=== PATIENT | female | born 1940 | race Caucasian/White ===

== ENCOUNTER 2017-09-07 09:38 | Inpatient (IN) | payer MEDICARE, OTHER ==
[~2017-09-07] VITALS: Ht 157.5 cm; Wt 86.2 kg
[~2017-09-07 09:38] MED LIST: ASPI-1169 PO; CELE-85 PO; DEXL60CA3 PO; ERGO500014 PO; GLIM4TAB2 PO; INSU100I19 SQ; LORA10TA68 PO; NEBI10TA2 PO; OLME1TAB22 PO; ROSU40TA PO
--- NOTE | 2017-09-07 09:45 | NUR ---
PRESENTS TO ER C/O SOB, PALPITATIONS, PNA. WAS IN HOSPITAL x 6 DAYS. PATIENT IS A/OX 4, BREATHING EVEN AND UNLABORED. NO DISTRESS NOTED. VITALS STABLE. SAFETY AND COMFORT MEASURES IN PLACE. AWAITING MD ORDERS.
--- NOTE | 2017-09-07 10:20 | NUR ---
NEW IV STARTED ON LAC, 20G. BLOOD DRAWN AND SENT TO LAB.
[2017-09-07] MEDS ORDERED: CEFTRIAXONE 1GM BAG (ER ONLY) 50 ML IV ONE ×2 (10:30→10:31)
[2017-09-07] MEDS ORDERED: LEVOFLOXACIN 750 MG /D5W 150ML 150 ML IV ONE ×2 (10:30→10:31)
[2017-09-07 10:33] LABS: BASOPHILS % (AUTO) 0.4 % (0.0-2.0); EOSINOPHILS % (AUTO) 3.3 % (0.0-6.0); HEMATOCRIT 32 % (33-45); HEMOGLOBIN 10.6 g/dL (11.5-14.8); LYMPHOCYTES # (AUTO) 1.9 /CMM (0.8-4.8); LYMPHOCYTES % (AUTO) 22.9 % (20.0-44.0); MEAN CORPUSCULAR HEMOGLOBIN 28 PG (26.0-33.0); MEAN CORPUSCULAR HGB CONC 33 g/dl (31.0-36.0); MEAN CORPUSCULAR VOLUME 86 fL (82-100); MONOCYTES # (AUTO) 0.5 /CMM (0.1-1.30); MONOCYTES % (AUTO) 6.3 % (2.0-12.0); NEUTROPHILS # (AUTO) 5.6 /CMM (1.8-8.9); NEUTROPHILS % (AUTO) 67.1 % (43.0-81.0); PLATELET COUNT (AUTO) 370 /CMM (150-450); RDW COEFFICIENT OF VARIATION 16.3 (11.5-15.0); RED BLOOD CELL COUNT(AUTO) 3.76 MIL/uL (4.0-5.2); WHITE BLOOD COUNT (AUTO) 8.3 K/uL (4.3-11.0)
[2017-09-07 10:40] LABS: CALCIUM, SERUM 8.1 mg/dL (8.5-10.1); CARBON DIOXIDE 29 mmol/L (21-32); CHLORIDE 105 mmol/L (98-107); CREATININE 1.2 mg/dL (0.6-1.3); GLUCOSE 205 mg/dL (74-106); POTASSIUM 3.6 mmol/L (3.5-5.1); SODIUM SERUM 139 mmol/L (136-145); UREA NITROGEN, BLOOD 17 mg/dL (7-18)
[2017-09-07 10:47] LABS: TROPONIN I < 0.017 ng/mL (0.00-0.056)
[2017-09-07 10:51] LABS: ALANINE AMINOTRANSFERASE 34 U/L (12-78); ALBUMIN 2.4 g/dL (3.4-5.0); ALKALINE PHOSPHATASE 63 U/L (46-116); ASPARTATE AMINOTRANSFERASE 20 U/L (15-37); B-TYPE NATRIURETIC PEPTIDE 473 PG/ML (0-125); BILIRUBIN,DIRECT 0.1 mg/dL (0.0-0.2); BILIRUBIN,TOTAL 0.1 mg/dL (0.2-1.0); TOTAL PROTEIN, SERUM 6.9 g/dL (6.4-8.2)
[2017-09-07] MEDS ORDERED: CLOP75TA15 PO (10:56)
[2017-09-07] MEDS ORDERED: HYDR-4076 PO (10:56)
[2017-09-07] MEDS ORDERED: AMLO5TAB2 PO (10:56)
[2017-09-07] MEDS ORDERED: ALLO100T PO (10:56)
[2017-09-07] MEDS ORDERED: JENTADUETO PO (10:56)
--- NOTE | 2017-09-07 11:27 | NUR ---
Bed 314-1
--- NOTE | 2017-09-07 11:43 | NUR ---
REPORT GIVEN TO ITALO PINEDO FOR CHRISTY UPON ADMISSION.
[2017-09-07] MEDS ORDERED: MAGNESIUM HYDROXIDE 30 ML UDC PO PRN (12:30)
[2017-09-07] MEDS ORDERED: Z GUARD REMEDY 2 OZ OINT TP PRN (12:30)
[2017-09-07] MEDS ORDERED: LORATADINE 10 MG TABLET PO PRN (12:30)
[2017-09-07] MEDS ORDERED: ONDANSETRON HCL/PF 4 MG/2 ML VIAL IVP PRN (12:30)
[2017-09-07] MEDS ORDERED: ZOLPIDEM TARTRATE 5 MG TABLET PO PRN (12:30)
[2017-09-07] MEDS ORDERED: HYDROCODONE/APAP 5/325MG 1 EACH TABLET PO PRN (12:30)
[2017-09-07] MEDS ORDERED: ACETAMINOPHEN 325 MG TABLET PO PRN (12:30)
[2017-09-07] MEDS ORDERED: MAG HYDROX/AL HYDROX/SIMETH 30 ML UDC PO PRN (12:30)
--- NOTE | 2017-09-07 12:30 | NUR ---
CONTRACTS PARALEGAL ADMITTING NOTE ADMITTING ORDER RECEIVED. PATIENT ARRIVED TO THE UNIT 1230 VIA GURNEY. ALERT ORIENTED X4, WAS ABLE TO AMBULATE TO THE BED FROM [facility] INDEPENDENT[facility]. IN NO APPARENT DISTRESS OR DISCOMFORT AT THIS TIME, RESPIRATIONS EVEN AND UNLABORED. DENIES PAIN AND SOB AT THIS TIME. ON ROOM AIR, TOLERATING WELL. PATIENT ADMITTED TO TELEMETRY UNIT UNDER DR. FREED, AWARE OF PATIENT ADMISSION, ORDERS PLACED IN [facility]. PATIENT ORIENTED TO THE UNIT, STAFF. FAMILY ACCOMPANYING PATIENT, VALUABLE CHECKED, HOME MEDICATIONS SENT TO PHARMACY. SAFETY MEASURES IN PLACE. BED IN LOW LOCKED POSITION, SIDE RAILS UP X2. CALL LIGHT WITHIN EASY REACH, WILL CARRY OUT ADMITTING ORDERS AND CONTINUE TO MONITOR.
--- NOTE | 2017-09-07 12:35 | NUR ---
PATIENT TRANSPORTED TO [facility] VIA ACLS PROTOCOL. RNIATLO TO PROVIDE CHRISTY.
--- NOTE | 2017-09-07 14:41 | NUR ---
patient's home medication Bystolic was not administered as patient stated she took one in the morning already. varified with pharmacy that the medication is once daily and held the dose.
--- NOTE | 2017-09-07 15:10 | NUR ---
RECEIVED REPORT FROM LAB, MIREILLE MARTINEZ, ABOUT PATIENT'S 2ND LACTIC ACID LEVEL BEING INCREASED TO 2.[address] FREED WAS MADE AWARE. NO NEW ORDERS AT THIS TIME. WILL CONTINUE TO MONITOR.
[2017-09-07 16:08] VITALS: BP 155/105
[2017-09-07] MEDS: JENTADUETO PO SCH (17:43)
[2017-09-07] MEDS: IV NS 0.9% 1,000 ML IV PRN (17:43)
[2017-09-07] MEDS: hydrALAZINE HCL 25 MG TABLET PO SCH (17:45)
[2017-09-07] MEDS: GLIMEPIRIDE 4 MG TABLET PO SCH (17:45)
--- NOTE | 2017-09-07 19:46 | NUR ---
WASHER REPAIRMAN CLOSING NOTE PATIENT IN BED, ALERT ORIENTED X4, IN NO APPARENT DISTRESS OR DISCOMFORT AT THIS TIME, RESPIRATIONS EVEN AND UNLABORED. DENIES PAIN AND SOB AT THIS TIME. ON ROOM AIR, TOLERATING WELL. PATIENT WITH TELEMETRY MONITORING, WITH SINUS RHYTHM, HR OF 74. PATIENT WITH LEFT AC IVC 20G, WITH FLUIDS RUNNING AT 75ML/HR, PATENT AND INTACT, NO SIGN OF INFILTRATION. PATIENT IS ABLE TO VERBALIZE NEEDS, SPEAKS BARBADIAN, UNDERSTANDS LITTLE CZECH. ALL NEEDS ATTENDED, KEPT CLEAN AND COMFORTABLE. SAFETY MEASURES IN PLACE. BED IN LOW LOCKED POSITION, SIDE RAILS UP X2. CALL LIGHT WITHIN EASY REACH, WILL ENDORSE TO PM NURSE FOR CHRISTY.
[2017-09-07 20:00] VITALS: BP 154/82
--- NOTE | 2017-09-07 20:00 | NUR ---
TELE/RN RECEIVE PATIENT AWAKE, ALERT, ORIENTED, COMFORTABLE, NO C/O PAIN, NO DISTRESS NOTED, CALL LIGHT IN REACH. WILL MONITOR.
[2017-09-08] VITALS: BP 158/69
[2017-09-08 04:00] VITALS: BP 158/71
[2017-09-08] MEDS: IV NS 0.9% 1,000 ML IV PRN (06:01)
--- NOTE | 2017-09-08 06:19 | NUR ---
TELE/RN PATIENT AWAKE, COMFORTABLE, NO C/O PAIN, NO DISTRESS NOTED,HAD AN ON AND OFF SLEEP THE WHOLE SHIFT. ALL NEEDS ATTENDED AT THIS TIME. WILL CONTINUE TO MONITOR.
[2017-09-08 06:37] LABS: BASOPHILS % (AUTO) 0.4 % (0.0-2.0); EOSINOPHILS % (AUTO) 3.6 % (0.0-6.0); HEMATOCRIT 31 % (33-45); HEMOGLOBIN 10.1 g/dL (11.5-14.8); LYMPHOCYTES % (AUTO) 30.1 % (20.0-44.0); MEAN CORPUSCULAR HEMOGLOBIN 28 PG (26.0-33.0); MEAN CORPUSCULAR HGB CONC 32 g/dl (31.0-36.0); MEAN CORPUSCULAR VOLUME 87 fL (82-100); MONOCYTES # (AUTO) 0.5 /CMM (0.1-1.30); MONOCYTES % (AUTO) 7.4 % (2.0-12.0); NEUTROPHILS # (AUTO) 3.9 /CMM (1.8-8.9); NEUTROPHILS % (AUTO) 58.5 % (43.0-81.0); PLATELET COUNT (AUTO) 335 /CMM (150-450); RDW COEFFICIENT OF VARIATION 15.9 (11.5-15.0); RED BLOOD CELL COUNT(AUTO) 3.59 MIL/uL (4.0-5.2); WHITE BLOOD COUNT (AUTO) 6.7 K/uL (4.3-11.0)
[2017-09-08 06:45] LABS: CALCIUM, SERUM 7.6 mg/dL (8.5-10.1); CARBON DIOXIDE 28 mmol/L (21-32); CHLORIDE 107 mmol/L (98-107); CREATININE 1.1 mg/dL (0.6-1.3); GLUCOSE 109 mg/dL (74-106); MAGNESIUM 1.7 mg/dL (1.8-2.4); PHOSPHORUS 3.4 mg/dL (2.5-4.9); POTASSIUM 3.8 mmol/L (3.5-5.1); SODIUM SERUM 141 mmol/L (136-145); UREA NITROGEN, BLOOD 12 mg/dL (7-18)
[2017-09-08 06:47] LABS: CHOLESTEROL 145 mg/dL (<200); HDL CHOLESTEROL 47 mg/dL (40-60); LDL 72 mg/dL (0-99); TRIGLYCERIDES 182 mg/dL (30-150)
--- NOTE | 2017-09-08 07:20 | NUR ---
RN OPENING NOTES PATIENT RECEIVED SLEEPING COMFORTABLY IN BED, EASILY AROUSABLE DURING CARE.ABLE TO MAKE NEEDS KNOWN RESPIRATIONS EVEN AND UNLABORED, DENIES ANY PAIN OR DISCOMFORT. IV ACCESS PATENT AND INTACT NO REDNESS OR INFILTRATION NOTED. SAFETY MEASURES IN PLACE, KEPT CLEAN DRY AND COMFORTABLE, CALL LIGHT WITHIN EASY REACH, WILL CONTINUE TO MONITOR
[2017-09-08 08:00] VITALS: BP 152/90
[2017-09-08] MEDS: PANTOPRAZOLE 40 MG TABLET.DR PO SCH (08:28)
[2017-09-08] MEDS: ALLOPURINOL 100 MG TABLET PO SCH (08:28)
[2017-09-08] MEDS: GLIMEPIRIDE 4 MG TABLET PO SCH ×2 (08:28→16:49)
[2017-09-08] MEDS: JENTADUETO PO SCH ×2 (08:29→16:49)
[2017-09-08] MEDS: AMLODIPINE BESYLATE 5 MG TABLET PO SCH (08:29)
[2017-09-08] MEDS ORDERED: CLOPIDOGREL BISULFATE 75 MG TABLET PO SCH (09:00)
[2017-09-08] MEDS ORDERED: IV NS 0.9% 1,000 ML BAG IV SCH (09:00)
[2017-09-08] MEDS: hydrALAZINE HCL 25 MG TABLET PO SCH ×2 (10:17→16:50)
[2017-09-08] MEDS: CEFTRIAXONE 2 G in IV NS 0.9% 100 ML IV SCH (12:05)
[2017-09-08] MEDS: Magnesium 1GM/D5W 100ML PREMIX 100 ML IV SCH ×2 (12:55→15:10)
[2017-09-08] MEDS: VALSARTAN 80 MG TABLET PO SCH (12:57)
[2017-09-08] MEDS ORDERED: AZITHROMYCIN 250 MG TABLET PO ONE (13:00)
[2017-09-08 16:00] VITALS: BP 141/89
[2017-09-08] MEDS ORDERED: RIVAROXABAN 10 MG TABLET PO SCH (17:00)
[2017-09-08] MEDS: RIVAROXABAN 15 MG TABLET PO SCH (17:02)
--- NOTE | 2017-09-08 19:36 | NUR ---
RN CLOSING NOTES PATIENT RECEIVED SLEEPING COMFORTABLY IN BED, EASILY AROUSABLE DURING CARE.ABLE TO MAKE NEEDS KNOWN RESPIRATIONS EVEN AND UNLABORED, DENIES ANY PAIN OR DISCOMFORT. IV ACCESS PATENT AND INTACT NO REDNESS OR INFILTRATION NOTED. SAFETY MEASURES IN PLACE, KEPT CLEAN DRY AND COMFORTABLE, CALL LIGHT WITHIN EASY REACH, WILL CONTINUE TO MONITOR Addendum: 09/08/17 at 1938 by YOUSIF WEINBERG RN RN NOTES ENDORSED TO NEXT SHIFT FOR CONTINUITY OF CARE
[2017-09-08 20:00] VITALS: BP 158/80
--- NOTE | 2017-09-08 20:00 | NUR ---
TELE/RN RECEIVE PATIENT AWAKE, ALERT, ORIENTED, COMFORTABLE, NO C/O PAIN, NO SIGNS OF DISTRESS NOTED, CALL LIGHT IN REACH. WILL MONITOR.
[2017-09-09 00:05] VITALS: BP 137/83
[2017-09-09 04:00] VITALS: BP 149/72
--- NOTE | 2017-09-09 06:31 | NUR ---
TELE/RN AWAKE, COMFORTABLE, NO DISTRESS NOTED, SLEPT GOOD THE WHOLE SHIFT, ALL NEEDS ATTENDED AT THIS TIME. WILL CONTINUE TO MONITOR.
[2017-09-09 06:42] LABS: BASOPHILS % (AUTO) 0.4 % (0.0-2.0); EOSINOPHILS % (AUTO) 3.3 % (0.0-6.0); HEMATOCRIT 33 % (33-45); HEMOGLOBIN 10.5 g/dL (11.5-14.8); LYMPHOCYTES # (AUTO) 1.7 /CMM (0.8-4.8); LYMPHOCYTES % (AUTO) 20.9 % (20.0-44.0); MEAN CORPUSCULAR HEMOGLOBIN 28 PG (26.0-33.0); MEAN CORPUSCULAR HGB CONC 32 g/dl (31.0-36.0); MEAN CORPUSCULAR VOLUME 87 fL (82-100); MONOCYTES # (AUTO) 0.5 /CMM (0.1-1.30); MONOCYTES % (AUTO) 6.6 % (2.0-12.0); NEUTROPHILS # (AUTO) 5.6 /CMM (1.8-8.9); NEUTROPHILS % (AUTO) 68.8 % (43.0-81.0); PLATELET COUNT (AUTO) 337 /CMM (150-450); RDW COEFFICIENT OF VARIATION 16.5 (11.5-15.0); RED BLOOD CELL COUNT(AUTO) 3.73 MIL/uL (4.0-5.2); WHITE BLOOD COUNT (AUTO) 8.2 K/uL (4.3-11.0)
[2017-09-09 07:06] LABS: ALANINE AMINOTRANSFERASE 32 U/L (12-78); ALBUMIN 2.5 g/dL (3.4-5.0); ALKALINE PHOSPHATASE 54 U/L (46-116); ASPARTATE AMINOTRANSFERASE 21 U/L (15-37); BILIRUBIN,TOTAL 0.2 mg/dL (0.2-1.0); CALCIUM, SERUM 7.4 mg/dL (8.5-10.1); CARBON DIOXIDE 26 mmol/L (21-32); CHLORIDE 107 mmol/L (98-107); GLUCOSE 90 mg/dL (74-106); PHOSPHORUS 3.6 mg/dL (2.5-4.9); POTASSIUM 3.7 mmol/L (3.5-5.1); SODIUM SERUM 141 mmol/L (136-145); TOTAL PROTEIN, SERUM 6.6 g/dL (6.4-8.2); UREA NITROGEN, BLOOD 9 mg/dL (7-18)
--- NOTE | 2017-09-09 07:33 | NUR ---
LONG HAUL TRUCK DRIVER OPENING NOTES PT RECEIVED AWAKE IN BED IN NO ACUTE SIGNS OF DISTRESS. A/O X 3, SAME ABLE TO MAKE NEEDS KNOWN, NO C/O PAIN OR DISCOMFORTS VOICED AT THIS TIME. ON ROOM AIR, RESPIRATION IS EVEN AND UNLABORED. PT ON TELE-MONITORING WITH CURRENT READING OF SR WITH HR OF 74, NO SIGNS OR C/O CARDIAC DISTRESS VOICED. IV ACCESS ON LAC INTACT AND PATENT, FLUSHES WELL. SAFETY MEASURES IN PLACE. BED IN LOW/LOCKED POSITION WITH SR UP X2. CALL LIGHT WITHIN REACH. WILL CONTINUE TO MONITOR.
[2017-09-09] MEDS: PANTOPRAZOLE 40 MG TABLET.DR PO SCH (07:47)
[2017-09-09 08:00] VITALS: BP 107/82
[2017-09-09] MEDS: JENTADUETO PO SCH ×2 (08:42→16:45)
[2017-09-09] MEDS: ALLOPURINOL 100 MG TABLET PO SCH (08:43)
[2017-09-09] MEDS: VALSARTAN 80 MG TABLET PO SCH (08:43)
[2017-09-09] MEDS: hydrALAZINE HCL 25 MG TABLET PO SCH ×2 (08:43→16:42)
[2017-09-09] MEDS: GLIMEPIRIDE 4 MG TABLET PO SCH ×2 (08:44→16:41)
[2017-09-09] MEDS: AMLODIPINE BESYLATE 5 MG TABLET PO SCH (08:44)
[2017-09-09] MEDS ORDERED: Rivaroxaban PO (09:28)
[2017-09-09] MEDS ORDERED: AZIT250T PO (09:28)
[2017-09-09] MEDS ORDERED: VALS80TA2 PO (09:28)
[2017-09-09] MEDS: CEFTRIAXONE 2 G in IV NS 0.9% 100 ML IV SCH (12:41)
[2017-09-09] MEDS ORDERED: AZITHROMYCIN 250 MG TABLET PO SCH (13:00)
[2017-09-09 16:00] VITALS: BP 154/86
[2017-09-09 16:42] VITALS: BP 154/86
[2017-09-09] MEDS: RIVAROXABAN 15 MG TABLET PO SCH (16:44)
--- NOTE | 2017-09-09 17:53 | NUR ---
RN DISCHARGED NOTES PATIENT DISCHARGED HOME IN STABLE CONDITION. A/O X3, SAME VERBALLY RESPONSIVE WITH NO C/O PAIN OR ACUTE DISTRESS THROUGHOUT THE DAY. ALL NEEDS AND CARE ATTENDED WELL. V/S TAKEN AND RECORDED. SKIN IS INTACT. BELONGINGS CHECKED, COUNTED AND SIGNED FORM. HEALTH TEACHINGS/DISCHARGE INSTRUCTIONS GIVEN TO PT AND VERBALIZED UNDERSTANDING. PRESCRIPTION FOR NEW MEDS GIVEN TO PT. CLINIC APPOINTMENT LETTER FOR MONDAY, SEPTEMBER 11 @ [address] [facility] EXPLAINED AND GIVEN TO PT. PT LEFT UNIT AT 1750 VIA WHEELCHAIR ACCOMPANIED BY ASSIGNED PERSONAL LINES ADVISOR AND [id number] GAYANA. MD AND CHARGE NURSE AWARE OF PT'S DISCHARGE. Addendum: 09/09/17 at 1809 by MARCO A KAY RN ADDENDUM: HOME MEDS FROM PHARMACY GIVEN TO PATIENT WITNESSED BY DAUGHTER IN LAW ZHUGERARDO
== END 2017-09-09 17:58 | disposition home or self-care (01) | DRG 194 ==
LOC: ER 09:40 → TELE 11:30 → MED 09-09 09:58
PROVIDERS: ADMIT Family Medicine; ATTEND Family Medicine
DX: J15.9 Unspecified bacterial pneumonia (principal); E44.0 Moderate protein-calorie malnutrition; E46 Unspecified protein-calorie malnutrition; E87.2 Acidosis; I50.32 Chronic diastolic (congestive) heart failure; D63.8 Anemia in other chronic diseases classified elsewhere; M10.9 Gout, unspecified; I48.91 Unspecified atrial fibrillation; E11.9 Type 2 diabetes mellitus without complications; E83.42 Hypomagnesemia; E88.09 Other disorders of plasma-protein metabolism, not elsewhere classified; E66.9 Obesity, unspecified; Z68.34 Body mass index [BMI] 34.0-34.9, adult; I11.0 Hypertensive heart disease with heart failure; Z79.84 Long term (current) use of oral hypoglycemic drugs; G47.33 Obstructive sleep apnea (adult) (pediatric); Z79.4 Long term (current) use of insulin
CPT/HCPCS: 36415; 70450-TC; 71045-TC; 80048-TC; 80053-TC; 80061-TC; 80076-TC; 83605-TC; 83735-TC; 83880; 84100-TC; 84484-TC; 85025-TC; 87040-TC; 87081-TC; 93307-TC; A4606; J0696; J1956; J3475; J7030; Z7610

== ENCOUNTER 2017-09-11 13:35 | Outpatient (CLI) | payer MEDICARE, OTHER ==
[~2017-09-11 13:35] MED LIST changes: +ALLO100T PO; +AMLO5TAB2 PO; -ASPI-1169 PO; +AZIT250T PO; -CELE-85 PO; -ERGO500014 PO; -INSU100I19 SQ; +JENTADUETO PO; -OLME1TAB22 PO; -ROSU40TA PO; +Rivaroxaban PO; +VALS80TA2 PO
[2017-09-11 13:43] VITALS: BP 130/86
== END 2017-09-11 23:59 | disposition home or self-care (01) ==
LOC: MSC 13:35
PROVIDERS: ATTEND Internal Medicine
DX: Z09 Encounter for follow-up examination after completed treatment for conditions other than malignant neoplasm (principal); Z87.01 Personal history of pneumonia (recurrent); I11.0 Hypertensive heart disease with heart failure; I50.32 Chronic diastolic (congestive) heart failure; E11.9 Type 2 diabetes mellitus without complications; Z79.4 Long term (current) use of insulin; I48.91 Unspecified atrial fibrillation; Z79.02 Long term (current) use of antithrombotics/antiplatelets; Z79.82 Long term (current) use of aspirin; E88.09 Other disorders of plasma-protein metabolism, not elsewhere classified; D64.9 Anemia, unspecified; E66.9 Obesity, unspecified; M10.9 Gout, unspecified

== ENCOUNTER 2019-03-11 08:14 | Emergency (ER) | payer MEDICARE, OTHER ==
[~2019-03-11] VITALS: Ht 160 cm; Wt 87.1 kg
[~2019-03-11 08:14] MED LIST changes: -AMLO5TAB2 PO; +AMLO5TAB9 PO; -GLIM4TAB2 PO; +GLIM4TAB4 PO
--- NOTE | 2019-03-11 08:20 | NUR ---
bib daughter, c/o head, left arm, left knee, bilateral rib pain s/p tripped and fall last night, left eye swelling and hematoma, -ko,7/10 pian scale. alert and oriented x3, breathing even and unlabored with no distress noted. noted with left eye swelling and brusie from fall. waiting to be seen by md.
[2019-03-11 08:50] LABS: BASOPHILS # (AUTO) 0.1 /CMM (0.0-0.2); BASOPHILS % (AUTO) 0.9 % (0.0-2.0); EOSINOPHILS % (AUTO) 1.1 % (0.0-6.0); HEMATOCRIT 39 % (33-45); HEMOGLOBIN 12.4 g/dL (11.5-14.8); LYMPHOCYTES # (AUTO) 2.8 /CMM (0.8-4.8); LYMPHOCYTES % (AUTO) 23.4 % (20.0-44.0); MEAN CORPUSCULAR HGB CONC 32 g/dl (31.0-36.0); MEAN CORPUSCULAR VOLUME 86 fL (82-100); MONOCYTES # (AUTO) 0.8 /CMM (0.1-1.30); MONOCYTES % (AUTO) 6.6 % (2.0-12.0); PLATELET COUNT (AUTO) 204 /CMM (150-450); RED BLOOD CELL COUNT(AUTO) 4.51 MIL/uL (4.0-5.2); WHITE BLOOD COUNT (AUTO) 11.8 K/uL (4.3-11.0)
--- NOTE | 2019-03-11 08:50 | NUR ---
x-ray at bedside to take patient for CT scan
[2019-03-11 09:02] LABS: CALCIUM, SERUM 8.6 mg/dL (8.5-10.1); CARBON DIOXIDE 22 mmol/L (21-32); CHLORIDE 105 mmol/L (98-107); CREATININE 1.5 mg/dL (0.6-1.3); GLUCOSE 98 mg/dL (74-106); POTASSIUM 4.3 mmol/L (3.5-5.1); SODIUM SERUM 140 mmol/L (136-145); UREA NITROGEN, BLOOD 36 mg/dL (7-18)
[2019-03-11 09:12] LABS: ALANINE AMINOTRANSFERASE 43 U/L (12-78); ALKALINE PHOSPHATASE 55 U/L (46-116); ASPARTATE AMINOTRANSFERASE 29 U/L (15-37); BILIRUBIN,DIRECT 0.1 mg/dL (0.0-0.2); BILIRUBIN,TOTAL 0.1 mg/dL (0.2-1.0); TOTAL PROTEIN, SERUM 7.4 g/dL (6.4-8.2)
--- NOTE | 2019-03-11 09:42 | NUR ---
boxer will be placed on patient on her left hand
--- NOTE | 2019-03-11 10:09 | NUR ---
Patient discharged to home in stable condition. Written and verbal after care instructions given. Patient verbalizes understanding of instruction.
[2019-03-11 10:11] VITALS: BP 128/82
== END 2019-03-11 10:12 | disposition home or self-care (01) ==
LOC: ER 08:16
DX: S62.397A Other fracture of fifth metacarpal bone, left hand, initial encounter for closed fracture (principal); S00.83XA Contusion of other part of head, initial encounter; I10 Essential (primary) hypertension; E11.9 Type 2 diabetes mellitus without complications; Z98.890 Other specified postprocedural states; Z79.899 Other long term (current) drug therapy; W01.198A Fall on same level from slipping, tripping and stumbling with subsequent striking against other object, initial encounter; Y93.89 Activity, other specified; Y92.89 Other specified places as the place of occurrence of the external cause; Y99.8 Other external cause status
CPT/HCPCS: 36415; 70450-TC; 71045-TC; 73130-TC; 80048-TC; 80076-TC; 84484-TC; 85025-TC; 85730-TC

== ENCOUNTER 2019-09-16 10:57 | Emergency (ER) | payer MEDICARE, OTHER ==
[~2019-09-16] VITALS: Ht 160 cm; Wt 92.5 kg
[~2019-09-16 10:57] MED LIST changes: +GLIM4TAB37 PO; -GLIM4TAB4 PO
--- NOTE | 2019-09-16 10:58 | NUR ---
BIB RA 39 FROM HOME,BLOOD NOTED IN HER VOMITOUS AND STOOL CHARGE ENTRY SPECIALIST, ALSO C/O R SIDED ABDOMINAL PAIN, TO ER BED 10, HOOKED TO BP CUFF AND POX, CHANGED TO HOSP GOWN, WARM BLANKET PROVIDED, PATIENT AAO x 4, BREATHING EVEN AND UNLABORED, DR HOBSON AT BEDSIDE FOR EVAL.
--- NOTE | 2019-09-16 11:05 | NUR ---
PT IV LINE ESTABLISHED BLOOD DRAWN AND SENT TO LAB.
--- NOTE | 2019-09-16 11:10 | NUR ---
picked up by epic radiant analyst for ct scan
[2019-09-16] MEDS ORDERED: MORPHINE SULFATE INJ 2 MG/ML DISP.SYRIN ONE (11:14)
[2019-09-16 11:15] LABS: BASOPHILS # (AUTO) 0.1 /CMM (0.0-0.2); BASOPHILS % (AUTO) 0.9 % (0.0-2.0); EOSINOPHILS % (AUTO) 1.7 % (0.0-6.0); HEMATOCRIT 40 % (33-45); LYMPHOCYTES # (AUTO) 1.8 /CMM (0.8-4.8); LYMPHOCYTES % (AUTO) 19.3 % (20.0-44.0); MEAN CORPUSCULAR HGB CONC 32 g/dl (31.0-36.0); MEAN CORPUSCULAR VOLUME 88 fL (82-100); MONOCYTES # (AUTO) 0.6 /CMM (0.1-1.30); MONOCYTES % (AUTO) 6.8 % (2.0-12.0); NEUTROPHILS # (AUTO) 6.8 /CMM (1.8-8.9); NEUTROPHILS % (AUTO) 71.3 % (43.0-81.0); PLATELET COUNT (AUTO) 230 /CMM (150-450); RED BLOOD CELL COUNT(AUTO) 4.57 MIL/uL (4.0-5.2); WHITE BLOOD COUNT (AUTO) 9.5 K/uL (4.3-11.0)
[2019-09-16] MEDS ORDERED: MORPHINE SULFATE INJ 2 MG/ML DISP.SYRIN IV ONE (11:30)
[2019-09-16 11:39] LABS: CALCIUM, SERUM 9.1 mg/dL (8.5-10.1); CARBON DIOXIDE 23 mmol/L (21-32); CHLORIDE 102 mmol/L (98-107); CREATININE 1.7 mg/dL (0.6-1.3); GLUCOSE 220 mg/dL (74-106); POTASSIUM 4.1 mmol/L (3.5-5.1); SODIUM SERUM 137 mmol/L (136-145); UREA NITROGEN, BLOOD 28 mg/dL (7-18)
[2019-09-16 11:47] LABS: ALANINE AMINOTRANSFERASE 40 U/L (12-78); ALBUMIN 3.4 g/dL (3.4-5.0); ALKALINE PHOSPHATASE 71 U/L (46-116); ASPARTATE AMINOTRANSFERASE 33 U/L (15-37); BILIRUBIN,DIRECT 0.1 mg/dL (0.0-0.2); BILIRUBIN,TOTAL 0.3 mg/dL (0.2-1.0); LIPASE 136 U/L (73-393)
[2019-09-16] MEDS ORDERED: KETOROLAC TROMETHAMINE INJ 30 MG/ML VIAL ONE (12:26)
[2019-09-16] MEDS ORDERED: KETOROLAC TROMETHAMINE INJ 30 MG/ML VIAL IV ONE (12:30)
--- NOTE | 2019-09-16 12:35 | NUR ---
CALLED ITALO [id number] [phone], NO ANSWER, LEFT VM
--- NOTE | 2019-09-16 12:35 | NUR ---
CALLED AND SPOKE TO GRANDDAUGHTER OBED. WILL COME AND BUSINESS INTELLIGENCE ETL DEVELOPER PT WITHIN AN HOUR.
[2019-09-16 12:40] LABS: APPEARANCE,URINE SL CLOUDY (CLEAR); BILIRUBIN,URINE NEGATIVE (NEGATIVE); BLOOD, URINE LARGE Ery/uL (NEGATIVE); COLOR,URINE YELLOW (YELLOW); KETONES,URINE NEGATIVE (NEGATIVE); LEUKOCYTE ESTERASE ,URINE NEGATIVE (NEGATIVE); NITRITE, URINE NEGATIVE (NEGATIVE); PH,URINE 5.5 (5.0-8.0); PROTEIN,URINE NEGATIVE (NEGATIVE); UGLUCOSE NEGATIVE (NEGATIVE); UROBILINOGEN,URINE 0.2 EU/dL (0.2)
[2019-09-16 12:51] LABS: BACTERIA,URINE Few /HPF (None Seen); RBC,URINE TOO NUMEROUS TO COUN /HPF (0-2); SQUAMOUS EPITHELIAL CELL,UR Few /HPF (None Seen)
[2019-09-16 12:52] LABS: URIC ACID CRYSTALS,URINE Few /HPF (None Seen)
--- NOTE | 2019-09-16 12:56 | NUR ---
IV removed. Catheter intact and site benign. Pressure and 4x4 applied to site. No bleeding noted.
--- NOTE | 2019-09-16 12:58 | NUR ---
Patient discharged to home in stable condition. Picked up by [id number]. Assisted patient via wheelchair to the waiting room. Written and verbal after care instructions given. Patient verbalizes understanding of instruction.
[2019-09-16 12:59] VITALS: BP 151/76
== END 2019-09-16 12:59 | disposition home or self-care (01) ==
LOC: ER 11:04
DX: N20.0 Calculus of kidney (principal); I10 Essential (primary) hypertension; E11.9 Type 2 diabetes mellitus without complications; Z79.899 Other long term (current) drug therapy
CPT/HCPCS: 36415; 71045; 74176; 80048; 80076; 81001; 83690; 84484; 85025; 85730; 86850; 93005; 96374; 96375; 99285; J1885; J2270; 81000-TC

== ENCOUNTER 2020-10-22 17:15 | Emergency (ER) | payer MEDICARE, OTHER ==
[~2020-10-22] VITALS: Ht 152.4 cm; Wt 88.0 kg
[~2020-10-22 17:15] MED LIST changes: +AMLO-212 PO; -AMLO5TAB9 PO
--- NOTE | 2020-10-22 19:07 | NUR ---
CALLED [facility] TO LOOK FOR AN ORTHOPEDIC SURGEON "PARMINDER" REFERRED TO BY PT. NO ORTHO. SRGN FOUND WITH "PARMINDER" BUT SPOKE TO PERSON IN CHARGE OF SURGERY WHO SAID THEY HAVE AN ORTHOPEDIC SURGEON "HEATHER". PT CONFIRMED THAT HEATHER WAS CORRECT. CALLED HEATHER'S OFFICE AT 190; BOILERMAKER SHIP TOLD ME THAT WE SHOULD EXPECT PHONE CALL FROM DR ROMERO WITHIN 15 MINUTES OF 1904, OTHERWISE WE SHOULD CALL THEM BACK AGAIN AT
--- NOTE | 2020-10-22 19:15 | NUR ---
recieved report from SHAHIDA bender
--- NOTE | 2020-10-22 19:52 | NUR ---
CALLED [facility], PAGED DR ROMERO, DR ROMERO SPEAKING WITH DR JULIEN
[2020-10-22] MEDS ORDERED: IBUPROFEN 400 MG TABLET ONE (20:26)
[2020-10-22] MEDS: IBUPROFEN 400 MG TABLET PO ONE (20:30)
--- NOTE | 2020-10-22 20:31 | NUR ---
PER PT, SON ON THE WAY TO PICK HER UP.
[2020-10-22] MEDS ORDERED: NAPR-1009 PO (20:57)
--- NOTE | 2020-10-22 21:11 | NUR ---
Patient discharged to home in stable condition. Written and verbal after care instructions given. Patient verbalizes understanding of instruction.RX given
[2020-10-22 21:12] VITALS: BP 177/80
== END 2020-10-22 21:12 | disposition home or self-care (01) ==
LOC: ER 17:20
DX: M25.461 Effusion, right knee (principal); M25.561 Pain in right knee; I10 Essential (primary) hypertension; E11.9 Type 2 diabetes mellitus without complications; Z98.890 Other specified postprocedural states; Z79.899 Other long term (current) drug therapy
CPT/HCPCS: 73564-TC

== ENCOUNTER 2020-11-22 15:21 | Inpatient (IN) | payer MEDICARE, OTHER ==
[~2020-11-22] VITALS: Ht 157.5 cm; Wt 133.5 kg
[~2020-11-22 15:21] MED LIST changes: +NAPR-1009 PO
--- NOTE | 2020-11-22 15:23 | NUR ---
RUPERTO EDWARDS AT BEDSIDE FOR EVAL.
[2020-11-22] MEDS ORDERED: MORPHINE SULFATE INJ 2 MG/ML DISP.SYRIN IV ONE (15:30)
[2020-11-22] MEDS ORDERED: IV NS 0.9% 1,000 ML BAG IV ONE ×3 (15:30→20:00)
[2020-11-22] MEDS ORDERED: ONDANSETRON HCL/PF 4 MG/2 ML VIAL IVP ONE (15:30)
--- NOTE | 2020-11-22 15:30 | NUR ---
BLOOD DRAWN AND SENT TO LAB.
[2020-11-22] MEDS ORDERED: ONDANSETRON HCL/PF 4 MG/2 ML VIAL ONE (15:32)
[2020-11-22] MEDS ORDERED: MORPHINE SULFATE INJ 2 MG/ML DISP.SYRIN ONE (15:32)
[2020-11-22 15:43] LABS: BASOPHILS % (AUTO) 0.4 % (0.0-2.0); EOSINOPHILS % (AUTO) 1.1 % (0.0-6.0); HEMATOCRIT 33 % (33-45); HEMOGLOBIN 10.6 g/dL (11.5-14.8); LYMPHOCYTES # (AUTO) 0.3 K/uL (0.8-4.8); LYMPHOCYTES % (AUTO) 11.1 % (20.0-44.0); MEAN CORPUSCULAR HGB CONC 32 g/dl (31.0-36.0); MEAN CORPUSCULAR VOLUME 85 fL (82-100); MONOCYTES % (AUTO) 0.7 % (2.0-12.0); NEUTROPHILS # (AUTO) 2.4 K/uL (1.8-8.9); NEUTROPHILS % (AUTO) 86.7 % (43.0-81.0); PLATELET COUNT (AUTO) 198 K/uL (150-450); RED BLOOD CELL COUNT(AUTO) 3.93 MIL/uL (4.0-5.2); WHITE BLOOD COUNT (AUTO) 2.8 K/uL (4.3-11.0)
[2020-11-22 15:56] LABS: ALANINE AMINOTRANSFERASE 27 U/L (12-78); ALBUMIN 2.7 g/dL (3.4-5.0); ALKALINE PHOSPHATASE 90 U/L (46-116); ASPARTATE AMINOTRANSFERASE 29 U/L (15-37); BILIRUBIN,DIRECT 0.2 mg/dL (0.0-0.2); BILIRUBIN,TOTAL 0.4 mg/dL (0.2-1.0); CALCIUM, SERUM 8.4 mg/dL (8.5-10.1); CARBON DIOXIDE 22 mmol/L (21-32); CHLORIDE 102 mmol/L (98-107); CREATININE 1.8 mg/dL (0.6-1.3); GLUCOSE 208 mg/dL (74-106); LIPASE 92 U/L (73-393); POTASSIUM 3.9 mmol/L (3.5-5.1); SODIUM SERUM 138 mmol/L (136-145); UREA NITROGEN, BLOOD 27 mg/dL (7-18)
[2020-11-22] MEDS ORDERED: PIPERACILLIN /TAZOBACTAM 3.375 G in IV D5W 50 ML IV ONE (16:00)
[2020-11-22] MEDS ORDERED: RIVA10TA PO (16:03)
[2020-11-22] MEDS ORDERED: GLIM1TAB18 PO (16:03)
[2020-11-22] MEDS ORDERED: AMIO200T5 PO (16:03)
[2020-11-22] MEDS ORDERED: METF-867 PO (16:03)
[2020-11-22] MEDS ORDERED: POTA8TAB3 PO (16:03)
[2020-11-22] MEDS ORDERED: DILT-32 PO (16:03)
[2020-11-22] MEDS ORDERED: FURO40TA5 PO (16:03)
[2020-11-22] MEDS ORDERED: OLME1TAB90 PO (16:18)
--- NOTE | 2020-11-22 16:42 | NUR ---
URINE COLLECTED AND SENT TO THE LAB
--- NOTE | 2020-11-22 16:43 | NUR ---
THE PATIENT IS TAKEN TO CT
--- NOTE | 2020-11-22 16:59 | NUR ---
THE PATIENT IS BACK FROM CT
--- NOTE | 2020-11-22 16:59 | NUR ---
COVID SWAB DONE AND SENT TO THE LAB
[2020-11-22 17:24] LABS: BILIRUBIN,URINE NEGATIVE (NEGATIVE); COLOR,URINE YELLOW (YELLOW); LEUKOCYTE ESTERASE ,URINE SMALL (NEGATIVE); NITRITE, URINE POSITIVE (NEGATIVE); PROTEIN,URINE 100 mg/dl (NEGATIVE); UGLUCOSE NEGATIVE (NEGATIVE); UROBILINOGEN,URINE 0.2 EU/dL (0.2)
[2020-11-22 17:35] LABS: BACTERIA,URINE 2+ /HPF (None Seen); RBC,URINE TOO NUMEROUS TO COUN /HPF (0-2); SQUAMOUS EPITHELIAL CELL,UR Few /HPF (None Seen); WBC,URINE 21-50 /HPF (0-3)
--- NOTE | 2020-11-22 17:44 | NUR ---
FAXED CLINICALS TO [facility] FOR HIGHER LEVEL OF CARE.
--- NOTE | 2020-11-22 17:46 | NUR ---
CALLED [email or web address] [phone] [facility] #[id number] CURRENTLY AT [facility] TRYING TO DECOMPRESS.
--- NOTE | 2020-11-22 17:57 | NUR ---
CALLED [facility] T: [phone] THEY WILL NOT PRESENT UNTIL TOMORROW TO MEDICAL. FAXING FACE SHEET AND CLINICALS TO THEM. F: [phone]
--- NOTE | 2020-11-22 18:25 | NUR ---
[facility] [phone] [facility] FAXING FACE SHEET AND CLINICALS [phone]
--- NOTE | 2020-11-22 18:40 | NUR ---
CALLED [facility] T: LEFT A MSG TO CALL US BACK.
--- NOTE | 2020-11-22 18:48 | NUR ---
THE PATIENT IS ALERT AND ORIENTED X4. DENIES PAIN. IN ROOM AIR AND DENIES SOB. RESPIRATION REGULAR AND UNLABORED. REMAINS ATTACHED TO THE MONITOR. VITAL SIGNS STABLE.
--- NOTE | 2020-11-22 18:49 | NUR ---
[facility] FROM [facility] CALLED, NEEDS H & P.
--- NOTE | 2020-11-22 18:55 | NUR ---
FAXED H & P TO [facility] [phone]
--- NOTE | 2020-11-22 19:07 | NUR ---
[facility] CALLED BACK [facility], NO BEDS AT THIS TIME. THEY WILL TRY AGAIN IN THE AM.
--- NOTE | 2020-11-22 19:26 | NUR ---
report given to nurse Dominguez
--- NOTE | 2020-11-22 19:40 | NUR ---
RECIEVED REPORT FOR CHRISTY. PATIENT RESTING COMFORTABLY IN BED. WHEN ASKED ABOUT PAIN SHE STATES FEELING "MUCH BETTER" VITAL SIGNS STABLE RESPIRATIONS EVEN AND UNLABORED
--- NOTE | 2020-11-22 19:51 | NUR ---
[facility] CALLED FOR HIGHER LEVEL OF CARE TRANSFER. NO GAS PRODUCER UROLOGY.
[2020-11-22] MEDS ORDERED: PIPERACILLIN /TAZOBACTAM 3.375 G VIAL IV ONE (22:00)
[2020-11-22] MEDS: PIPERACILLIN /TAZOBACTAM 3.375 G in IV D5W 50 ML IV SCH (22:05)
[2020-11-22 22:08] LABS: ABG BASE EXCESS -6.1 mmol/L; ABG OXYGEN SATURATION 96.3 % (92.0-98.5); ABG PCO2 29.3 mmHg (35.0-45.0); ABG PH 7.398 (7.350-7.450); ABG PO2 86.5 mmHg (75.0-100.0); AaDO2 78.6 mmHg; COHb 0.5 % (0.5-1.5); O2Hb 95.8 % (94.0-97.0); SITE, ABG Left Radial; VENT MODE, BG Nasal Cannula
--- NOTE | 2020-11-22 23:47 | NUR ---
REC'D A CALL FROM [facility] STATED UNABLE TO ACCEPT THE PT. NO BED AVAILABLE AT THIS TIME
[2020-11-23] VITALS (10 sets, daily range): BP systolic 103–128; BP diastolic 55–60
--- NOTE | 2020-11-23 00:36 | NUR ---
PATIENT SLEEPING COMOFRTBALY IN BED EASILY AROUSABLE V/S STABLE RESPIRATIONS EVEN AND UNLABORED
[2020-11-23] MEDS ORDERED: PIPERACILLIN /TAZOBACTAM 3.375 G VIAL IV ONE (04:54)
[2020-11-23] MEDS: PIPERACILLIN /TAZOBACTAM 3.375 G in IV D5W 50 ML IV SCH ×2 (05:05)
--- NOTE | 2020-11-23 07:05 | NUR ---
Dr Jessica Narvaez paged per Dr Ríos.
--- NOTE | 2020-11-23 07:33 | NUR ---
PT RESTING COMFORTABLY IN NO DISTRESS EASILY AROUSABLE V/S STABLE. REPORT GIVEN FOR CHRISTY.
--- NOTE | 2020-11-23 07:38 | NUR ---
[facility] CALLED BACK TO SPEAK WITH DR. HOBSON REGARDING CASE.
--- NOTE | 2020-11-23 07:45 | NUR ---
RECEIVED THE PATIENT IN ER BED #8. THE PATIENT IS ALERT AND ORIENTED X3. IN ROOM AIR AND DENIES SOB. RESPIRATION REGULAR AND UNLABORED. ATTACHED TO THE MONITOR. WARM BLANKETS PROVIDED FOR COMFORT. WILL CONTINUE TO MONITOR THE PATIENT.
--- NOTE | 2020-11-23 07:51 | NUR ---
[facility] CALLED. NO AVAILABLE BED AT THIS TIME.
--- NOTE | 2020-11-23 07:52 | NUR ---
internal control specialistMD Dr. Narvaez [phone]
--- NOTE | 2020-11-23 07:52 | NUR ---
Dr Jessica Narvaez called back to message that was left for her.
--- NOTE | 2020-11-23 07:58 | NUR ---
SPOKE WITH DANYEL FROM [facility]. WILL CALL BACK TO HAVE PEER TO PEER WITH DR. HOBSON.
--- NOTE | 2020-11-23 08:24 | NUR ---
HEADING AND PRIMING OPERATOR UROLOGY CALLED AND LEFT A MESSAGE. AWAITING CALL BACK.
--- NOTE | 2020-11-23 08:33 | NUR ---
[facility] Dr. Kiran speaking to Dr. Ríos for admission.
[2020-11-23] MEDS ORDERED: IV NS 0.9% 1,000 ML IV PRN (09:00)
[2020-11-23] MEDS ORDERED: MORPHINE SULFATE INJ 2 MG/ML DISP.SYRIN IV PRN (09:00)
[2020-11-23] MEDS ORDERED: Z GUARD REMEDY 2 OZ OINT TP PRN (09:00)
[2020-11-23] MEDS ORDERED: ACETAMINOPHEN 325 MG TABLET PO PRN (09:00)
[2020-11-23] MEDS ORDERED: Medication Not On Formulary EA (Olmesartan/Hydrochlorothiazide (Olmesartan-Hctz 40-12.5 PO SCH (09:00)
[2020-11-23] MEDS: AMIODARONE HCL 200 MG TABLET PO SCH (09:00)
[2020-11-23] MEDS ORDERED: ONDANSETRON HCL/PF 4 MG/2 ML VIAL IVP PRN (09:00)
[2020-11-23] MEDS: AMLODIPINE BESYLATE 5 MG TABLET PO SCH (09:00)
[2020-11-23] MEDS: FUROSEMIDE 40 MG TABLET PO SCH (09:00)
[2020-11-23] MEDS: GLIMEPIRIDE 1 MG TABLET PO SCH ×2 (09:00→17:30)
[2020-11-23] MEDS: ALLOPURINOL 100 MG TABLET PO SCH (09:00)
[2020-11-23] MEDS: DILTIAZEM HCL CD 120 MG PO SCH (09:00)
[2020-11-23] MEDS: LOSARTAN POTASSIUM 25 MG TABLET PO SCH (09:30)
[2020-11-23] MEDS: HYDROCHLOROTHIAZIDE 25 MG TABLET PO SCH (09:30)
--- NOTE | 2020-11-23 09:44 | NUR ---
PER NURSING SUP THE PATIENT IS SCHEDULED TO HAVE A PROCEDURE DONE TODAY AT 1500. KEEPING THE PATIENT NPO
[2020-11-23] MEDS: PANTOPRAZOLE 40 MG TABLET.DR PO SCH (09:48)
--- NOTE | 2020-11-23 09:50 | NUR ---
room 310-1
--- NOTE | 2020-11-23 10:00 | NUR ---
ROOM 310-1
--- NOTE | 2020-11-23 10:27 | NUR ---
report given to nurse Hairston from tele
--- NOTE | 2020-11-23 10:39 | NUR ---
The patient is transfered to room 310-2 in stable condition and per [facility] policy.
[2020-11-23] MEDS ORDERED: PIPERACILLIN /TAZOBACTAM 4.5 G in IV D5W 50 ML IV SCH (12:00)
[2020-11-23] MEDS: ZOSYN IVPB 2.25 G in IV D5W 50ml IV SCH ×3 (13:03→23:06)
--- NOTE | 2020-11-23 13:18 | NUR ---
MS RN ADMITTING NOTES PT ADMITTED TO UNIT AT 1035 VIA GURNEY ACCOMPANIED BY SHYANN RN WITH DX OF INFECTED KIDNEY STONE. PT IS A/O X-3-4. ABLE TO MAKE NEEDS KNOWN, NO C/O PAIN AT THIS TIME. PT ORIENTED TO STAFF AND UNIT. ON ROOM AIR, TOLERATING WELL, BREATHING EVEN AND UNLABORED. SKIN IS INTACT WITH NO SKIN ISSUES NOTED. IV ACCESS PRESENT ON LEFT HAND G#20, IVF OF NS @ 75ML/HR STARTED NO S/S OF INFILTRATIONS AT SITE NOTED. DR NICOLE CAME AND ASSESSED PT. PATIENT FOR CYSTOSCOPY, RIGHT JJ STENT PLACEMENT, FLUOROSCOPY PROCEDURE TODAY, ALL CONSENTS SIGNED. NPO MAINTAINED. SAFETY MEASURES INITIATED: BED IN ,LOWEST LOCKED POSITION WITH SIDE-RAILS UP X2. CALL LIGHT PLACED W/I EASY REACH OF PT. WILL CONTINUE TO MONITOR.
--- NOTE | 2020-11-23 14:20 | NUR ---
RN NOTES PATIENT PICKED-UP FOR SURGERY.
[2020-11-23] MEDS ORDERED: FENTANYL PF 100MCG/2ML AMPUL ONE (14:26)
--- NOTE | 2020-11-23 17:08 | NUR ---
RN NOTES PT RETURNED TO UNIT @ 1620 VIA HER BED ACCOMPANIED BY GERALD, HOSPITAL RECEIVING CLERK S/P CYSTOSCOPY WITH RIGHT JJ STENT PLACEMENT BY DR MODI. PT IS AWAKE BUT SLIGHTLY DROWSY. ABLE TO MAKE NEEDS KNOWN, NO C/O PAIN AT THIS TIME. PT ON SUPPLEMENTAL 02 @ 2LPM VIA N/C AT THIS TIME, TOLERATING WELL WITH SP02 OF 97% NOTED. V/S TAKEN, STABLE AND RECORDED PER PROTOCOL. PT RESUMED ON IVF ORDERED VIA LEFT HAND IV ACCESS. WILL CONTINUE TO MONITOR PT AND CARRY OUT POST-OP ORDERS.
[2020-11-23] MEDS: IV NS 0.9% 1,000 ML IV SCH (18:51)
--- NOTE | 2020-11-23 18:55 | NUR ---
MS RN CLOSING NOTES PT IN BED AWAKE AT THIS TIME WITH DAUGHTER IN LAW AT BEDSIDE. A/O X-3-4. ABLE TO MAKE NEEDS KNOWN. ON SUPPLEMENTAL 02 AT 2LPM VIA N.C AT THIS TIME, TOLERATING WELL, BREATHING EVEN AND UNLABORED. IV ACCESS ON LEFT HAND G#20, IVF OF NS @ 125ML/HR INFUSING WELL, NO S/S OF INFILTRATIONS AT SITE NOTED. ALL NEEDS AND CARE ATTENDED WELL. SAFETY MEASURES IN PLACE: HOB KEPT ELEVATED, BED IN LOWEST LOCKED POSITION, SIDE RAILS UPX2. CALL LIGHT AND BEDSIDE TABLE WITHIN EASY REACH OF PT. WILL ENDORSE CHRISTY TO PLASTIC WELDER NURSE.
--- NOTE | 2020-11-23 19:45 | NUR ---
MS RN OPENING NOTE RECEIVED PT AWAKE IN BED WITH [id number] AT BEDSIDE. A/O X-3-4, ABLE TO MAKE NEEDS KNOWN. PT ON 2LPM O2 VIA NC, TOLERATING WELL. NO SOB OR S/S OF RESPIRATORY DISTRESS NOTED. IV ACCESS IN LEFT HAND #20 INFUSING NS @ 125ML/HR, INTACT AND PATENT. SAFETY PRECAUTIONS MAINTAINED. BED IN LOWEST LOCKED POSITION, HOB ELEVATED, SIDE RAILS UP X2. CALL LIGHT AND TABLE WITHIN REACH. WILL CONTINUE WITH PLAN OF CARE.
[2020-11-23 20:39] LABS: IRON, SERUM 8 ug/dl (50-175); TOTAL IRON BINDING CAPACITY 326 ug/dl (250-450)
[2020-11-24] MEDS: IV NS 0.9% 1,000 ML IV SCH ×3 (01:53→17:41)
[2020-11-24] MEDS: ZOSYN IVPB 2.25 G in IV D5W 50ml IV SCH ×4 (05:06→23:46)
--- NOTE | 2020-11-24 06:31 | NUR ---
MS RN CLOSING NOTE PT IS AWAKE IN BED. A/O X3-4, ABLE TO MAKE NEEDS KNOWN. PT IS STABLE ON ROOM AIR, TOLERATING WELL. NO SOB OR S/S OF RESPIRATORY DISTRESS NOTED. IV ACCESS IN LEFT HAND #20 INFUSING NS @ 125ML/HR, INTACT AND PATENT. ALL NEEDS HAVE BEEN MET. SAFETY PRECAUTIONS MAINTAINED AT ALL TIMES. BED IN LOWEST LOCKED POSITION, HOB ELEVATED, SIDE RAILS UP X2. CALL LIGHT AND TABLE WITHIN REACH. WILL ENDORSE TO ONCOMING NURSE FOR CHRISTY.
[2020-11-24 07:26] LABS: BASOPHILS # (AUTO) 0.1 K/uL (0.0-0.2); BASOPHILS % (AUTO) 0.2 % (0.0-2.0); HEMATOCRIT 30 % (33-45); HEMOGLOBIN 9.4 g/dL (11.5-14.8); LYMPHOCYTES # (AUTO) 0.9 K/uL (0.8-4.8); LYMPHOCYTES % (AUTO) 3.8 % (20.0-44.0); MEAN CORPUSCULAR HGB CONC 31 g/dl (31.0-36.0); MEAN CORPUSCULAR VOLUME 84 fL (82-100); MONOCYTES # (AUTO) 1.1 K/uL (0.1-1.30); MONOCYTES % (AUTO) 4.7 % (2.0-12.0); NEUTROPHILS # (AUTO) 21.5 K/uL (1.8-8.9); NEUTROPHILS % (AUTO) 91.3 % (43.0-81.0); PLATELET COUNT (AUTO) 168 K/uL (150-450); RED BLOOD CELL COUNT(AUTO) 3.54 MIL/uL (4.0-5.2); WHITE BLOOD COUNT (AUTO) 23.6 K/uL (4.3-11.0)
--- NOTE | 2020-11-24 07:30 | NUR ---
MS RN OPENING NOTES RECEIVED PATIENT, IN BED, AWAKE. A/O X-3-4, ABLE TO MAKE NEEDS KNOWN. ON ROOM AIR, TOLERATING WELL. NO SOB OR S/S OF RESPIRATORY DISTRESS NOTED. IV ACCESS IN LEFT HAND #20 INFUSING NS @ 125ML/HR, INTACT AND PATENT. SAFETY PRECAUTIONS IN PLACE. BED IN LOWEST LOCKED POSITION, HOB ELEVATED, SIDE RAILS UP X2. CALL LIGHT AND TABLE WITHIN REACH. NO COMPLAINTS OF PAIN AT THIS TIME. WILL CONTINUE TO MONITOR ACCORDINGLY.
--- NOTE | 2020-11-24 08:15 | NUR ---
RN NOTES WOUND CARE NURSE AMBERLY NOTED SACRAL DTI. PICTURE WAS TAKEN AND FILED TO CHART. CLEANSE AREA WITH NS, OATTED DRY AND PLACED MEPILEX. INCIDENT REPORT DONE. Addendum: 11/24/20 at 1839 by YEMI GUTIERREZ RN DISREGARD ABOVE NOTES. WRONG PATIENT
[2020-11-24 08:31] VITALS: BP 129/69
[2020-11-24] MEDS: HYDROCHLOROTHIAZIDE 25 MG TABLET PO SCH (08:31)
[2020-11-24] MEDS: FUROSEMIDE 40 MG TABLET PO SCH (08:31)
[2020-11-24] MEDS: ALLOPURINOL 100 MG TABLET PO SCH (08:31)
[2020-11-24] MEDS: AMLODIPINE BESYLATE 5 MG TABLET PO SCH (08:32)
[2020-11-24] MEDS: AMIODARONE HCL 200 MG TABLET PO SCH (08:32)
[2020-11-24] MEDS: GLIMEPIRIDE 1 MG TABLET PO SCH ×2 (08:32→16:03)
[2020-11-24] MEDS: LOSARTAN POTASSIUM 25 MG TABLET PO SCH (08:32)
[2020-11-24 08:43] LABS: CHOLESTEROL 164 mg/dL (<200); HDL CHOLESTEROL 47 mg/dL (40-60); LDL 70 mg/dL (0-99); THYROID STIMULATING HORMONE 1.482 uIU/mL (0.358-3.74); TRIGLYCERIDES 109 mg/dL (30-150); URIC ACID 4.4 mg/dL (2.6-7.2)
[2020-11-24 08:46] LABS: ALANINE AMINOTRANSFERASE 57 U/L (12-78); ALBUMIN 2.2 g/dL (3.4-5.0); ALKALINE PHOSPHATASE 64 U/L (46-116); ASPARTATE AMINOTRANSFERASE 41 U/L (15-37); BILIRUBIN,DIRECT 0.1 mg/dL (0.0-0.2); BILIRUBIN,TOTAL 0.3 mg/dL (0.2-1.0); CALCIUM, SERUM 7.2 mg/dL (8.5-10.1); CARBON DIOXIDE 22 mmol/L (21-32); CHLORIDE 104 mmol/L (98-107); CREATININE 1.7 mg/dL (0.6-1.3); GLUCOSE 287 mg/dL (74-106); MAGNESIUM 1.9 mg/dL (1.8-2.4); PHOSPHORUS 3.4 mg/dL (2.5-4.9); SODIUM SERUM 136 mmol/L (136-145); TOTAL PROTEIN, SERUM 6.6 g/dL (6.4-8.2); UREA NITROGEN, BLOOD 30 mg/dL (7-18)
[2020-11-24] MEDS: PANTOPRAZOLE 40 MG TABLET.DR PO SCH (09:02)
[2020-11-24] MEDS: DILTIAZEM HCL CD 120 MG PO SCH (09:36)
[2020-11-24 16:16] VITALS: BP 104/80
[2020-11-24] MEDS: RIVAROXABAN 15 MG TABLET PO SCH (17:44)
--- NOTE | 2020-11-24 18:40 | NUR ---
MS RN CLOSING NOTES PATIENT IN BED, AWAKE. A/O X-3-4, ABLE TO MAKE NEEDS KNOWN. ON ROOM AIR, TOLERATING WELL. NO SOB OR S/S OF RESPIRATORY DISTRESS NOTED. IV ACCESS IN LEFT HAND #20 INFUSING NS @ 125ML/HR, INTACT AND PATENT. SAFETY PRECAUTIONS IN PLACE. BED IN LOWEST LOCKED POSITION, HOB ELEVATED, SIDE RAILS UP X2. CALL LIGHT AND TABLE WITHIN REACH. NO COMPLAINTS OF PAIN AT THIS TIME. ALL NEEDS ATTENDED AND MET. DUE MEDS GIVEN ORDERED. WILL ENDORSE TO ONCOMING SHIFT FOR CHRISTY.
--- NOTE | 2020-11-24 21:37 | NUR ---
RN NOTES PATIENT IN BED, AWAKE. A/O X-3-4, ABLE TO MAKE NEEDS KNOWN. ON ROOM AIR, TOLERATING WELL. NO SOB OR S/S OF RESPIRATORY DISTRESS NOTED. IV ACCESS IN LEFT HAND #20 INFUSING NS @ 125ML/HR, INTACT AND PATENT. SAFETY PRECAUTIONS IN PLACE. BED IN LOWEST LOCKED POSITION, HOB ELEVATED, SIDE RAILS UP X2. CALL LIGHT AND TABLE WITHIN REACH. NO COMPLAINTS OF PAIN AT THIS TIME. ALL NEEDS ATTENDED AND MET. WILL CONTINUE TO MONITOR.
[2020-11-24 21:39] VITALS: BP 132/63
[2020-11-25] MEDS ORDERED: MAGNESIUM HYDROXIDE 30 ML UDC PO PRN
[2020-11-25] MEDS: IV NS 0.9% 1,000 ML IV SCH (02:03)
--- NOTE | 2020-11-25 03:48 | NUR ---
RN NOTES PT STATED SHE WAS IN PAIN ALL OVER HER BODY OFFERED HER PRN PAIN MEDICATION PT REFUSED. PT STATED FEELING SOME ANXIETY TRIED TO SPEAK TO PT TO CALM HER DOWN. PT CONCERNED WHY SHES URINATING SO MUCH. EXPLAINED TO PT IST WHAT EXPECTED WINSTON TO HER TAKING LASIX. PT UNDERSTOOD APPEARS TO BE MORE AT EASE AT THIS TIME. OFFERED PAIN MEDICATION AGAIN PT STATED " NO ITS OKAY I JUST WANT TO TRY TO GET SOME SLEEP I DONT WANT THE PAIN MEDICATION ANYMORE" WILL CONTINUE TO MONITOR.
[2020-11-25] MEDS: ZOSYN IVPB 2.25 G in IV D5W 50ml IV SCH ×4 (05:06→23:26)
--- NOTE | 2020-11-25 06:40 | NUR ---
RN NOTES PATIENT IN BED, AWAKE. A/O X-3-4, ABLE TO MAKE NEEDS KNOWN. ON ROOM AIR, TOLERATING WELL. NO SOB OR S/S OF RESPIRATORY DISTRESS NOTED. IV ACCESS IN LEFT HAND #20 INFUSING NS @ 125ML/HR, INTACT AND PATENT. SAFETY PRECAUTIONS IN PLACE. BED IN LOWEST LOCKED POSITION, HOB ELEVATED, SIDE RAILS UP X2. CALL LIGHT AND TABLE WITHIN REACH. NO COMPLAINTS OF PAIN AT THIS TIME. ALL NEEDS ATTENDED AND MET KEPT CLEAN AND DRY AT ALL TIMES. ALL DUE MEDS GIVEN. WILL ENDORSE CARE TO DAY SHIFT NURSE.
[2020-11-25 06:44] LABS: BASOPHILS # (AUTO) 0.1 K/uL (0.0-0.2); BASOPHILS % (AUTO) 0.3 % (0.0-2.0); EOSINOPHILS % (AUTO) 0.9 % (0.0-6.0); HEMATOCRIT 33 % (33-45); HEMOGLOBIN 10.6 g/dL (11.5-14.8); LYMPHOCYTES # (AUTO) 1.7 K/uL (0.8-4.8); MEAN CORPUSCULAR HGB CONC 32 g/dl (31.0-36.0); MEAN CORPUSCULAR VOLUME 83 fL (82-100); MONOCYTES # (AUTO) 0.8 K/uL (0.1-1.30); MONOCYTES % (AUTO) 4.2 % (2.0-12.0); NEUTROPHILS # (AUTO) 16.4 K/uL (1.8-8.9); NEUTROPHILS % (AUTO) 85.6 % (43.0-81.0); PLATELET COUNT (AUTO) 184 K/uL (150-450); RED BLOOD CELL COUNT(AUTO) 3.99 MIL/uL (4.0-5.2); WHITE BLOOD COUNT (AUTO) 19.2 K/uL (4.3-11.0)
[2020-11-25 06:49] LABS: CALCIUM, SERUM 8.1 mg/dL (8.5-10.1); CARBON DIOXIDE 26 mmol/L (21-32); CHLORIDE 100 mmol/L (98-107); CREATININE 1.7 mg/dL (0.6-1.3); GLUCOSE 215 mg/dL (74-106); POTASSIUM 3.3 mmol/L (3.5-5.1); SODIUM SERUM 137 mmol/L (136-145); UREA NITROGEN, BLOOD 26 mg/dL (7-18)
[2020-11-25 08:00] VITALS: BP 122/72
[2020-11-25] MEDS: ALLOPURINOL 100 MG TABLET PO SCH (09:05)
[2020-11-25] MEDS: GLIMEPIRIDE 1 MG TABLET PO SCH ×2 (09:05→17:45)
[2020-11-25] MEDS: FUROSEMIDE 40 MG TABLET PO SCH (09:05)
[2020-11-25] MEDS: DILTIAZEM HCL CD 120 MG PO SCH (09:05)
[2020-11-25] MEDS: PANTOPRAZOLE 40 MG TABLET.DR PO SCH (09:05)
[2020-11-25] MEDS: HYDROCHLOROTHIAZIDE 25 MG TABLET PO SCH (11:55)
[2020-11-25] MEDS: AMLODIPINE BESYLATE 5 MG TABLET PO SCH ×2 (11:55→17:46)
[2020-11-25] MEDS: LOSARTAN POTASSIUM 25 MG TABLET PO SCH (11:55)
[2020-11-25] MEDS: AMIODARONE HCL 200 MG TABLET PO SCH (11:55)
[2020-11-25] MEDS ORDERED: POTASSIUM CHLORIDE 10 MEQ TABLET.SA PO ONE (12:00)
[2020-11-25] MEDS ORDERED: IV NS 0.9% 1,000 ML IV ONE (13:30)
[2020-11-25 16:00] VITALS: BP 143/77
--- NOTE | 2020-11-25 17:30 | NUR ---
LACTIC ACID ELEVATED THEN DOWN LATER IN DAY.
[2020-11-25] MEDS: RIVAROXABAN 15 MG TABLET PO SCH (17:47)
--- NOTE | 2020-11-25 18:00 | NUR ---
IV LT.HAND INFILTRATED.DC'D.SEVERAL ATTEMPTS TO RESTART PERIPHERALLY THEN #18 MIDLINE INSERTED TO LT. UPPER ARM.ICE PACK TO LT ARM.REPLACEMET OF ORAL POTASSIUM FOR 3.3 POTASSIUM LEVEL.BOLUS SALINE IV GIVEN ORDERED BY DR. QUINTEROS.
--- NOTE | 2020-11-25 19:10 | NUR ---
MS RN OPENING NOTES: RECEIVED PATIENT IN BED,AWAKE, A/O X4. NO S/S OF DISTRESS NOTED. CALL LIGHT WITHIN REACH. BED IN LOWEST AND LOCKED POSITION. HOB ELEVATED. INSTRUCTED PATIENT TO CALL FOR ANY ASSISTANCE, PATIENT VERBALIZED UNDERSTANDING.
[2020-11-25 20:00] VITALS: BP 125/63
[2020-11-26 06:16] LABS: BASOPHILS % (AUTO) 0.6 % (0.0-2.0); HEMATOCRIT 32 % (33-45); HEMOGLOBIN 10.1 g/dL (11.5-14.8); LYMPHOCYTES # (AUTO) 2.1 K/uL (0.8-4.8); LYMPHOCYTES % (AUTO) 23.6 % (20.0-44.0); MEAN CORPUSCULAR HGB CONC 32 g/dl (31.0-36.0); MEAN CORPUSCULAR VOLUME 85 fL (82-100); MONOCYTES # (AUTO) 0.7 K/uL (0.1-1.30); MONOCYTES % (AUTO) 8.5 % (2.0-12.0); NEUTROPHILS # (AUTO) 5.6 K/uL (1.8-8.9); NEUTROPHILS % (AUTO) 64.3 % (43.0-81.0); PLATELET COUNT (AUTO) 179 K/uL (150-450); RED BLOOD CELL COUNT(AUTO) 3.81 MIL/uL (4.0-5.2); WHITE BLOOD COUNT (AUTO) 8.7 K/uL (4.3-11.0)
[2020-11-26] MEDS: ZOSYN IVPB 2.25 G in IV D5W 50ml IV SCH ×4 (06:31→23:18)
[2020-11-26 06:32] LABS: CALCIUM, SERUM 7.8 mg/dL (8.5-10.1); CARBON DIOXIDE 30 mmol/L (21-32); CHLORIDE 102 mmol/L (98-107); CREATININE 1.6 mg/dL (0.6-1.3); GLUCOSE 221 mg/dL (74-106); POTASSIUM 3.4 mmol/L (3.5-5.1); SODIUM SERUM 138 mmol/L (136-145); UREA NITROGEN, BLOOD 27 mg/dL (7-18)
--- NOTE | 2020-11-26 07:30 | NUR ---
MS RN OPENING NOTE RECEIVED PATIENT AWAKE IN BED. ALERT AND ORIENTED X 4. NO S/S OF DISTRESS NOTED. BREATHING IS EVEN AND UNLABORED. IV ACCESS FOUZIA MIDLINE PATENT AND INTACT. SAFETY MEASURES MAINTAINED WITH BED LOCKED AT LOW POSITION AND SIDE RAILS UP X2. CALL LIGHT IS WITHIN REACH . WILL CONTINUE TO MONITOR THROUGHOUT SHIFT.
[2020-11-26 08:00] VITALS: BP 123/61
[2020-11-26] MEDS: GLIMEPIRIDE 1 MG TABLET PO SCH ×2 (08:34→17:14)
[2020-11-26] MEDS: AMLODIPINE BESYLATE 5 MG TABLET PO SCH (08:39)
[2020-11-26] MEDS: FUROSEMIDE 40 MG TABLET PO SCH (08:39)
[2020-11-26] MEDS: AMIODARONE HCL 200 MG TABLET PO SCH (08:40)
[2020-11-26] MEDS: LOSARTAN POTASSIUM 25 MG TABLET PO SCH (08:40)
[2020-11-26] MEDS: PANTOPRAZOLE 40 MG TABLET.DR PO SCH (08:41)
[2020-11-26] MEDS: HYDROCHLOROTHIAZIDE 25 MG TABLET PO SCH (08:41)
[2020-11-26] MEDS: DILTIAZEM HCL CD 120 MG PO SCH (08:41)
[2020-11-26] MEDS: ALLOPURINOL 100 MG TABLET PO SCH (08:41)
[2020-11-26] MEDS ORDERED: POTASSIUM CHLORIDE 20 MEQ TAB.PRT.SR PO SCH ×2 (09:30→11:00)
[2020-11-26] MEDS: RIVAROXABAN 15 MG TABLET PO SCH (17:16)
--- NOTE | 2020-11-26 19:04 | NUR ---
MS RN CLOSING NOTE PATIENT IS RESTING BED, COMFORTABLY. NO S/S OF DISTRESS NOTED. BREATHING IS EVEN AND UNLABORED. ALL NEEDS MET THROUGHOUT SHIFT. SAFETY MEASURES MAINTAINED WITH BED LOCKED AT LOW POSITION AND SIDE RAILS UP X2. . WILL ENDORSE CONTINUITY OF CARE TO ONCOMING SHIFT.
--- NOTE | 2020-11-26 19:45 | NUR ---
MS RN OPENING NOTES RECEIVED PATIENT IN BED, AWAKE. PT IS AOx4. PT ON ROOM AIR AND TOLERATING WELL. NO SOB NOTED. NO S/SX OF DISTRESS NOTED. IV ACCESS FOUZIA MIDLINE. IV IS PATENT, INTACT, AND FLUSHING WELL. SAFETY MEASURES IN PLACE: BED IN LOWEST, LOCKED POSITION, BRAKES ON, SIDERAILS UPx2. CALL LIGHT AND TABLE WITHIN REACH. WILL CONTINUE TO MONITOR.
[2020-11-26 20:00] VITALS: BP 139/81
[2020-11-27] MEDS: ZOSYN IVPB 2.25 G in IV D5W 50ml IV SCH ×4 (05:14→23:28)
--- NOTE | 2020-11-27 06:28 | NUR ---
MS RN CLOSING NOTES PATIENT IN BED, AWAKE. PT IS AOx4. ON ROOM AIR AND TOLERATING WELL. NO SOB NOTED. NO S/SX OF DISTRESS NOTED. IV ACCESS FOUZIA MIDLINE. IV IS PATENT, INTACT, AND FLUSHING WELL. ALL NEEDS MET. PT KEPT CLEAN AND DRY. SAFETY MEASURES IN PLACE: BED IN LOWEST, LOCKED POSITION, BRAKES ON, SIDERAILS UPx2. CALL LIGHT AND TABLE WITHIN REACH. WILL ENDORSE TO ONCOMING SHIFT.
[2020-11-27 06:42] LABS: BASOPHILS # (AUTO) 0.1 K/uL (0.0-0.2); BASOPHILS % (AUTO) 0.7 % (0.0-2.0); HEMATOCRIT 34 % (33-45); HEMOGLOBIN 10.7 g/dL (11.5-14.8); LYMPHOCYTES # (AUTO) 2.1 K/uL (0.8-4.8); LYMPHOCYTES % (AUTO) 24.6 % (20.0-44.0); MEAN CORPUSCULAR HGB CONC 32 g/dl (31.0-36.0); MEAN CORPUSCULAR VOLUME 83 fL (82-100); MONOCYTES # (AUTO) 0.7 K/uL (0.1-1.30); MONOCYTES % (AUTO) 8.8 % (2.0-12.0); NEUTROPHILS # (AUTO) 5.2 K/uL (1.8-8.9); NEUTROPHILS % (AUTO) 61.9 % (43.0-81.0); PLATELET COUNT (AUTO) 207 K/uL (150-450); RED BLOOD CELL COUNT(AUTO) 4.04 MIL/uL (4.0-5.2); WHITE BLOOD COUNT (AUTO) 8.4 K/uL (4.3-11.0)
[2020-11-27 06:53] LABS: CALCIUM, SERUM 8.4 mg/dL (8.5-10.1); CARBON DIOXIDE 29 mmol/L (21-32); CHLORIDE 98 mmol/L (98-107); CREATININE 1.6 mg/dL (0.6-1.3); GLUCOSE 252 mg/dL (74-106); POTASSIUM 3.4 mmol/L (3.5-5.1); SODIUM SERUM 136 mmol/L (136-145); UREA NITROGEN, BLOOD 27 mg/dL (7-18)
--- NOTE | 2020-11-27 07:30 | NUR ---
m/s shaping machine tender: notes received pt in bed awake, a/ox4 with dx: s/p Cystoscopy, right JJ stent placement and fluoroscopy. no c/o pain or any discomfort. instructed to call for assistance. will continue to monitor.
[2020-11-27] MEDS ORDERED: POTASSIUM CHLORIDE 10 MEQ TABLET.SA PO ONE (08:00)
--- NOTE | 2020-11-27 08:00 | NUR ---
m/s ammunition assembly i laborer: md visit seen and examined by dr. middleton.
[2020-11-27 08:27] VITALS: BP 149/70
[2020-11-27] MEDS: FUROSEMIDE 40 MG TABLET PO SCH (08:48)
[2020-11-27] MEDS: PANTOPRAZOLE 40 MG TABLET.DR PO SCH (08:48)
[2020-11-27] MEDS: AMIODARONE HCL 200 MG TABLET PO SCH (08:49)
[2020-11-27] MEDS: LOSARTAN POTASSIUM 25 MG TABLET PO SCH (08:49)
[2020-11-27] MEDS: GLIMEPIRIDE 1 MG TABLET PO SCH ×2 (08:51→17:26)
[2020-11-27] MEDS: ALLOPURINOL 100 MG TABLET PO SCH (08:51)
[2020-11-27] MEDS: DILTIAZEM HCL CD 120 MG PO SCH (08:51)
[2020-11-27] MEDS: AMLODIPINE BESYLATE 5 MG TABLET PO SCH (08:51)
[2020-11-27] MEDS: HYDROCHLOROTHIAZIDE 25 MG TABLET PO SCH (08:51)
--- NOTE | 2020-11-27 10:00 | NUR ---
m/s aviation manager: notes resting comfortable in bed. no distress noted.
--- NOTE | 2020-11-27 12:00 | NUR ---
m/s assembler finger buffs: notes having lunch at this time. will continue to monitor.
--- NOTE | 2020-11-27 14:00 | NUR ---
m/s windows deployment technician: notes resting quietly in bed with no apparent distress noted. will continue to monitor.
[2020-11-27 16:23] VITALS: BP 115/66
[2020-11-27] MEDS: RIVAROXABAN 15 MG TABLET PO SCH (17:26)
--- NOTE | 2020-11-27 18:30 | NUR ---
m/s visual education director: notes resting comfortable in bed. no apparent distress noted. needs attended. instructed to call for assistance. will continue to monitor.
--- NOTE | 2020-11-27 19:57 | NUR ---
MS RN OPENING NOTES RECEIVED PATIENT IN BED, AWAKE, FAMILY MEMBER AT BEDSIDE. PT IS AOx4. ON ROOM AIR AND TOLERATING WELL. NO SOB NOTED. NO S/SX OF DISTRESS NOTED. NO COMPLAINTS OF PAIN AT THIS TIME. IV ACCESS FOUZIA MIDLINE. IV IS PATENT, INTACT, AND FLUSHING WELL. SAFETY MEASURES IN PLACE: BED IN LOWEST, LOCKED POSITION, BRAKES ON, SIDERAILS UPx2. CALL LIGHT AND TABLE WITHIN REACH. WILL CONTINUE TO MONITOR.
[2020-11-27 20:00] VITALS: BP 125/81
[2020-11-28] MEDS: ZOSYN IVPB 2.25 G in IV D5W 50ml IV SCH ×3 (05:19→17:36)
--- NOTE | 2020-11-28 06:15 | NUR ---
MS RN CLOSING NOTES RECEIVED PATIENT IN BED, AWAKE. PT IS AOx4. ON ROOM AIR AND TOLERATING WELL. NO SOB NOTED. NO S/SX OF DISTRESS NOTED. NO COMPLAINTS OF PAIN THROUGHOUT SHIFT. IV ACCESS FOUZIA MIDLINE. IV IS PATENT, INTACT, AND FLUSHING WELL. ALL NEEDS MET. PT KEPT CLEAN AND DRY. SAFETY MEASURES IN PLACE: BED IN LOWEST, LOCKED POSITION, BRAKES ON, SIDERAILS UPx2. CALL LIGHT AND TABLE WITHIN REACH. WILL ENDORSE TO ONCOMING SHIFT.
[2020-11-28 06:40] LABS: BASOPHILS # (AUTO) 0.1 K/uL (0.0-0.2); BASOPHILS % (AUTO) 0.9 % (0.0-2.0); EOSINOPHILS % (AUTO) 3.7 % (0.0-6.0); HEMATOCRIT 33 % (33-45); HEMOGLOBIN 10.7 g/dL (11.5-14.8); LYMPHOCYTES # (AUTO) 2.2 K/uL (0.8-4.8); LYMPHOCYTES % (AUTO) 22.6 % (20.0-44.0); MEAN CORPUSCULAR HGB CONC 32 g/dl (31.0-36.0); MEAN CORPUSCULAR VOLUME 83 fL (82-100); MONOCYTES % (AUTO) 9.8 % (2.0-12.0); NEUTROPHILS # (AUTO) 6.2 K/uL (1.8-8.9); PLATELET COUNT (AUTO) 210 K/uL (150-450); RED BLOOD CELL COUNT(AUTO) 4.03 MIL/uL (4.0-5.2); WHITE BLOOD COUNT (AUTO) 9.8 K/uL (4.3-11.0)
[2020-11-28 06:49] LABS: CALCIUM, SERUM 8.5 mg/dL (8.5-10.1); CARBON DIOXIDE 29 mmol/L (21-32); CHLORIDE 92 mmol/L (98-107); CREATININE 1.9 mg/dL (0.6-1.3); GLUCOSE 331 mg/dL (74-106); POTASSIUM 3.4 mmol/L (3.5-5.1); SODIUM SERUM 131 mmol/L (136-145); UREA NITROGEN, BLOOD 32 mg/dL (7-18)
--- NOTE | 2020-11-28 07:45 | NUR ---
MS/RN OPENING NOTES RECEIVED PATIENT ON BED AWAKE ALERT AND ORIENTED X4. PATIENT IS ON ROOM AIR. PATIENT IN NO APPARENT RESPIRATORY DISTRESS NOTED. NO COMPLAINED OF PAIN NOTED. WILL CONTINUE TO MONITOR.
[2020-11-28 08:00] VITALS: BP 96/54
[2020-11-28] MEDS ORDERED: POTASSIUM CHLORIDE 20 MEQ TAB.PRT.SR PO ONE (08:00)
[2020-11-28] MEDS: GLIMEPIRIDE 1 MG TABLET PO SCH ×2 (08:40→17:35)
[2020-11-28] MEDS: LOSARTAN POTASSIUM 25 MG TABLET PO SCH (08:41)
[2020-11-28] MEDS: DILTIAZEM HCL CD 120 MG PO SCH (08:41)
[2020-11-28] MEDS: PANTOPRAZOLE 40 MG TABLET.DR PO SCH (08:41)
[2020-11-28] MEDS: ALLOPURINOL 100 MG TABLET PO SCH (08:42)
[2020-11-28] MEDS: AMLODIPINE BESYLATE 5 MG TABLET PO SCH (08:42)
[2020-11-28] MEDS: FUROSEMIDE 40 MG TABLET PO SCH (08:42)
[2020-11-28] MEDS: AMIODARONE HCL 200 MG TABLET PO SCH (08:42)
--- NOTE | 2020-11-28 08:47 | NUR ---
RN NOTES PATIENT REFUSED TO TAKE POTASSIUM 20MG 1 TAB P.O. EXPLAINED THE RISK AND BENEFITS. MD WAS AWARE.
--- NOTE | 2020-11-28 09:00 | NUR ---
rn notes patient take potassium 20mg 1 tab p.o.
--- NOTE | 2020-11-28 11:08 | NUR ---
MS/RN NOTES BLADDER SCAN WAS INITIATED, 122 ML URINE IN THE BLADDER.
[2020-11-28 16:00] VITALS: BP 129/79
[2020-11-28] MEDS: RIVAROXABAN 15 MG TABLET PO SCH (17:35)
--- NOTE | 2020-11-28 19:10 | NUR ---
MS/RN CLOSING NOTES PATIENT IS ON BED, ALERT AND ORIENTED X4. PATIENT IS ON ROOM AIR. PATIENT IN NO APPARENT RESPIRATORY DISTRESS NOTED. NO COMPLAINED OF PAIN NOTED AT THIS TIME. SEEN ND EXAMINED BY MD WITH ORDERS MADE AND CARRIED OUT. ALL DUE MEDICATIONS WAS GIVEN. IV ACCESS AT LEFT UPPER MIDLINE PATENT AND INTACT. SAFETY PRECAUTIONS WAS IN PLACE. BED IN LOW POSITION AND LOCKED. SIDERAILS UP X2. CALL LIGHT WITHIN REACH. WILL ENDORSED TO COOLER SUPERVISOR FOR CHRISTY.
--- NOTE | 2020-11-28 19:30 | NUR ---
MS RN OPENING RECEIVED PATIENT ALERT AND ORIENTED X4. DAUGHTER IN LAW A BED SIDE. NO APPARENT DISTRESS ON ROOM AIR. DENIES PAIN. NO FLUIDS RUNNING AT THIS TIME. SAFETY IN PLACE. WILL CONT. TO MONITOR.
--- NOTE | 2020-11-28 19:35 | NUR ---
MS RN NOTE PER DAUGHTER IN LAW - ANI, WOULD LIKE TO TALK WITH THE DOCTOR. HER CELL # .
[2020-11-28 20:00] VITALS: BP 124/72
[2020-11-29] MEDS: ZOSYN IVPB 2.25 G in IV D5W 50ml IV SCH ×4 (00:04→17:06)
--- NOTE | 2020-11-29 06:44 | NUR ---
MS RN CLOSING NOTE PATIENT IN BED WITH EYES CLOSED, EASY TO AROUSE. A/OX4. DOES NOT EXHIBIT APPARENT DISTRESS ON ROOM AIR. DENIES PAIN. NO FLUID RUNNING AT THIS TIME. ALL NEEDS ATTENDED. ALL SCHEDULED MEDICATIONS ADMINISTERED. NO SIGNIFICANT CHANGE SINCE LAST SHIFT. SAFETY KEPT IN PLACE THE WHOLE SHIFT. WILL ENDORSE CARE TO MORNING SHIFT RN.
[2020-11-29 06:58] LABS: BASOPHILS # (AUTO) 0.1 K/uL (0.0-0.2); BASOPHILS % (AUTO) 1.1 % (0.0-2.0); EOSINOPHILS % (AUTO) 4.6 % (0.0-6.0); HEMATOCRIT 34 % (33-45); HEMOGLOBIN 10.9 g/dL (11.5-14.8); LYMPHOCYTES # (AUTO) 1.7 K/uL (0.8-4.8); LYMPHOCYTES % (AUTO) 21.4 % (20.0-44.0); MEAN CORPUSCULAR HGB CONC 33 g/dl (31.0-36.0); MEAN CORPUSCULAR VOLUME 83 fL (82-100); MONOCYTES # (AUTO) 0.8 K/uL (0.1-1.30); MONOCYTES % (AUTO) 10.4 % (2.0-12.0); NEUTROPHILS # (AUTO) 5.1 K/uL (1.8-8.9); NEUTROPHILS % (AUTO) 62.5 % (43.0-81.0); PLATELET COUNT (AUTO) 208 K/uL (150-450); RED BLOOD CELL COUNT(AUTO) 4.03 MIL/uL (4.0-5.2); WHITE BLOOD COUNT (AUTO) 8.1 K/uL (4.3-11.0)
[2020-11-29 07:37] LABS: CALCIUM, SERUM 8.5 mg/dL (8.5-10.1); CARBON DIOXIDE 29 mmol/L (21-32); CHLORIDE 92 mmol/L (98-107); CREATININE 2.1 mg/dL (0.6-1.3); POTASSIUM 3.2 mmol/L (3.5-5.1); SODIUM SERUM 131 mmol/L (136-145); UREA NITROGEN, BLOOD 33 mg/dL (7-18)
--- NOTE | 2020-11-29 08:00 | NUR ---
RN NOTES PATIENT SEEN BY DR. FREED TODAY W/ ORDERS.
[2020-11-29] MEDS: ALLOPURINOL 100 MG TABLET PO SCH (08:45)
[2020-11-29] MEDS: PANTOPRAZOLE 40 MG TABLET.DR PO SCH (08:45)
[2020-11-29] MEDS: AMIODARONE HCL 200 MG TABLET PO SCH (08:45)
[2020-11-29] MEDS: FUROSEMIDE 40 MG TABLET PO SCH (08:45)
[2020-11-29] MEDS: GLIMEPIRIDE 1 MG TABLET PO SCH ×2 (08:45→17:04)
[2020-11-29] MEDS: AMLODIPINE BESYLATE 5 MG TABLET PO SCH (08:45)
[2020-11-29] MEDS: LOSARTAN POTASSIUM 25 MG TABLET PO SCH (08:46)
[2020-11-29] MEDS: DILTIAZEM HCL CD 120 MG PO SCH (08:46)
[2020-11-29 09:10] LABS: GLUCOSE 363 mg/dL (74-106)
[2020-11-29] MEDS ORDERED: POTASSIUM CHLORIDE 20 MEQ TAB.PRT.SR PO ONE (10:00)
--- NOTE | 2020-11-29 12:00 | NUR ---
RN NOTES PATIENT'S DTR IN [place], AT BEDSIDE VISITING PATIENT. UPDATED W/ PATIENT'S PROGRESS AND CURRENT CONDITION.
[2020-11-29] MEDS: RIVAROXABAN 15 MG TABLET PO SCH (17:05)
--- NOTE | 2020-11-29 19:10 | NUR ---
RN NOTES PATIENT IN BED AWAKE AND VERBALLY RESPONSIVE. BREATHING EVEN AND UNLABORED, CONTINUES ON ROOM AIR. DUE MEDS GIVEN. ASSISTED W/ ADLS TOLERATED. IV LINE INTACT. SAFETY MEASURES MAINTAINED. ENDORSED TO BAGGING MACHINE OPERATOR RN FOR CHRISTY.
--- NOTE | 2020-11-29 19:47 | NUR ---
MS RN OPENING RECEIVED PATIENT ALERT AND ORIENTED X4, IN BED. NO APPARENT DISTRESS ON ROOM AIR. DENIES PAIN. NO FLUIDS RUNNING AT THIS TIME. SAFETY IN PLACE. WILL CONT. TO MONITOR.
[2020-11-29 20:00] VITALS: BP 148/63
[2020-11-30] VITALS: BP 142/77
[2020-11-30] MEDS: ZOSYN IVPB 2.25 G in IV D5W 50ml IV SCH ×3 (00:21→11:40)
[2020-11-30 08:00] VITALS: BP 125/62
--- NOTE | 2020-11-30 08:00 | NUR ---
RN OPENING NOTE PT AWAKE IN BED RESTING. ON RA WITH NO SOB OR RESPIRATORY DISTRESS PRESENT. BI PAP AT NIGHT. A/O X3 AND KHMER SPEAKING. NO COMPLAINT OF PAIN OR NAUSEA. ON BEDREST WITH DIAPER PRESENT. WALKER AT BEDSIDE. NO EDEMA PRESENT. NO CONGREGATIONAL CARE PASTOR. SKIN INTACT. IV PRESENT ON FOUZIA MIDLINE AND FLUSHES WELL. SALINE LOCKED. LABS AND ORDERS REVIEWED. SAFETY MEASURES IN PLACE. SIDE RAILS RAISED. BED LOWERED. CALL LIGHT WITHIN REACH. WILL CONTINUE TO MONITOR.
[2020-11-30] MEDS: GLIMEPIRIDE 1 MG TABLET PO SCH (09:18)
[2020-11-30] MEDS: DILTIAZEM HCL CD 120 MG PO SCH (09:18)
[2020-11-30] MEDS: LOSARTAN POTASSIUM 25 MG TABLET PO SCH (09:18)
[2020-11-30] MEDS: FUROSEMIDE 40 MG TABLET PO SCH (09:18)
[2020-11-30] MEDS: AMIODARONE HCL 200 MG TABLET PO SCH (09:18)
[2020-11-30 09:19] VITALS: BP 125/62
[2020-11-30] MEDS: PANTOPRAZOLE 40 MG TABLET.DR PO SCH (09:19)
[2020-11-30] MEDS: ALLOPURINOL 100 MG TABLET PO SCH (09:19)
[2020-11-30] MEDS: AMLODIPINE BESYLATE 5 MG TABLET PO SCH (09:19)
[2020-11-30 10:47] LABS: BASOPHILS # (AUTO) 0.1 K/uL (0.0-0.2); BASOPHILS % (AUTO) 1.4 % (0.0-2.0); HEMATOCRIT 35 % (33-45); HEMOGLOBIN 11.2 g/dL (11.5-14.8); LYMPHOCYTES # (AUTO) 1.5 K/uL (0.8-4.8); MEAN CORPUSCULAR HGB CONC 32 g/dl (31.0-36.0); MEAN CORPUSCULAR VOLUME 84 fL (82-100); MONOCYTES # (AUTO) 0.6 K/uL (0.1-1.30); MONOCYTES % (AUTO) 6.1 % (2.0-12.0); NEUTROPHILS % (AUTO) 73.5 % (43.0-81.0); PLATELET COUNT (AUTO) 241 K/uL (150-450); RED BLOOD CELL COUNT(AUTO) 4.21 MIL/uL (4.0-5.2); WHITE BLOOD COUNT (AUTO) 9.6 K/uL (4.3-11.0)
[2020-11-30 11:03] LABS: CALCIUM, SERUM 8.6 mg/dL (8.5-10.1); CARBON DIOXIDE 27 mmol/L (21-32); CHLORIDE 91 mmol/L (98-107); POTASSIUM 3.6 mmol/L (3.5-5.1); SODIUM SERUM 129 mmol/L (136-145); UREA NITROGEN, BLOOD 30 mg/dL (7-18)
[2020-11-30 11:08] LABS: GLUCOSE 492 mg/dL (74-106)
--- NOTE | 2020-11-30 12:04 | NUR ---
SOCIOLOGY PROFESSOR NOTE PT DISCHARGED HOME. [employer] EDUCATION UTILIZED AND GIVEN TO PT. F/U WITH PCP, UROLOGY, AND NEPHROLOGY. NO NEW PRESCRIPTIONS. IV LINE REMOVED ID BANDS REMOVED. BELONGINGS CHECKED AND GIVEN TO PT. PT DRESSED. PT TRANSPORTED HOME VIA PRIVATE CAR ACCOMPANIED BY FAMILY.
== END 2020-11-30 12:00 | disposition home health service (06) | DRG 660 ==
LOC: ER 15:26 → TRANSITION 11-23 09:29 → TELE 11-23 10:20 → MED 11-23 11:03
PROVIDERS: ADMIT Internal Medicine; ATTEND Family Medicine
PROC: 0T768DZ Dilation of Right Ureter with Intraluminal Device, Via Natural or Artificial Opening Endoscopic (ICD-10-PCS; principal; 2020-11-23)
PROC: BT16YZZ Fluoroscopy of Right Ureter using Other Contrast (ICD-10-PCS; 2020-11-23)
PROC: 05HF33Z Insertion of Infusion Device into Left Cephalic Vein, Percutaneous Approach (ICD-10-PCS; 2020-11-25)
DX: N13.6 Pyonephrosis (principal); D68.59 Other primary thrombophilia; E44.0 Moderate protein-calorie malnutrition; E87.1 Hypo-osmolality and hyponatremia; E87.2 Acidosis; N18.9 Chronic kidney disease, unspecified; I12.9 Hypertensive chronic kidney disease with stage 1 through stage 4 chronic kidney disease, or unspecified chronic kidney disease; I25.10 Atherosclerotic heart disease of native coronary artery without angina pectoris; I48.91 Unspecified atrial fibrillation; E11.22 Type 2 diabetes mellitus with diabetic chronic kidney disease; E11.65 Type 2 diabetes mellitus with hyperglycemia; Z79.01 Long term (current) use of anticoagulants; Z79.84 Long term (current) use of oral hypoglycemic drugs; Z79.899 Other long term (current) drug therapy; D63.8 Anemia in other chronic diseases classified elsewhere; E27.8 Other specified disorders of adrenal gland; E78.5 Hyperlipidemia, unspecified; R13.10 Dysphagia, unspecified; N13.9 Obstructive and reflux uropathy, unspecified; B96.89 Other specified bacterial agents as the cause of diseases classified elsewhere; M10.9 Gout, unspecified; K44.9 Diaphragmatic hernia without obstruction or gangrene; M43.16 Spondylolisthesis, lumbar region; M48.10 Ankylosing hyperostosis [Forestier], site unspecified; Z87.442 Personal history of urinary calculi; Z95.0 Presence of cardiac pacemaker; M40.204 Unspecified kyphosis, thoracic region; E87.6 Hypokalemia
CPT/HCPCS: 36410; 36415; 36600; 71045-TC; 74018; 76770-TC; 80048-TC; 80053-TC; 80061-TC; 80076-TC; 81001; 83540-TC; 83605-TC; 83690-TC; 83735-TC; 83880; 84100-TC; 84443-TC; 84484-TC; 84550-TC; 85025-TC; 85730-TC; 87040-TC; 87081-TC; 87086-TC; 87186-TC; 97112-TC; 97116-TC; 97530-TC; A4217; C1769; C2617; C9803; G0378; J0330; J1100; J2270; J2405; J2543; J2704; J3010; J3490; J7030; J7040; J7042; J7050; J7060

== ENCOUNTER 2020-12-22 10:04 | Outpatient (CLI) | payer MEDICARE, OTHER ==
[~2020-12-22 10:04] MED LIST changes: +AMIO200T5 PO; -AZIT250T PO; +DILT-32 PO; +FURO40TA5 PO; +GLIM1TAB18 PO; -GLIM4TAB37 PO; -JENTADUETO PO; -LORA10TA68 PO; +METF-867 PO; -NAPR-1009 PO; -NEBI10TA2 PO; +OLME1TAB90 PO; +POTA8TAB3 PO; +RIVA10TA PO; -Rivaroxaban PO; -VALS80TA2 PO
[2020-12-22 13:00] LABS: C-REACTIVE PROTEIN 0.7 mg/dL (0.0-0.9); CHOLESTEROL 184 mg/dL (<200); HDL CHOLESTEROL 70 mg/dL (40-60); LDL 88 mg/dL (0-99); THYROID STIMULATING HORMONE 5.007 uIU/mL (0.358-3.74); TRIGLYCERIDES 117 mg/dL (30-150)
[2020-12-22 13:01] LABS: BASOPHILS # (AUTO) 0.1 K/uL (0.0-0.2); BASOPHILS % (AUTO) 0.8 % (0.0-2.0); HEMATOCRIT 31 % (33-45); HEMOGLOBIN 9.9 g/dL (11.5-14.8); LYMPHOCYTES # (AUTO) 1.8 K/uL (0.8-4.8); LYMPHOCYTES % (AUTO) 19.8 % (20.0-44.0); MEAN CORPUSCULAR HGB CONC 32 g/dl (31.0-36.0); MEAN CORPUSCULAR VOLUME 84 fL (82-100); MONOCYTES # (AUTO) 0.5 K/uL (0.1-1.30); MONOCYTES % (AUTO) 5.9 % (2.0-12.0); NEUTROPHILS # (AUTO) 6.3 K/uL (1.8-8.9); NEUTROPHILS % (AUTO) 70.5 % (43.0-81.0); PLATELET COUNT (AUTO) 198 K/uL (150-450); RED BLOOD CELL COUNT(AUTO) 3.68 MIL/uL (4.0-5.2); WHITE BLOOD COUNT (AUTO) 8.9 K/uL (4.3-11.0)
[2020-12-22 13:03] LABS: ALANINE AMINOTRANSFERASE 36 U/L (12-78); ALBUMIN 2.7 g/dL (3.4-5.0); ALKALINE PHOSPHATASE 75 U/L (46-116); ASPARTATE AMINOTRANSFERASE 25 U/L (15-37); BILIRUBIN,TOTAL 0.2 mg/dL (0.2-1.0); CALCIUM, SERUM 7.6 mg/dL (8.5-10.1); CARBON DIOXIDE 23 mmol/L (21-32); CHLORIDE 105 mmol/L (98-107); CREATININE 1.5 mg/dL (0.6-1.3); GLUCOSE 253 mg/dL (74-106); MAGNESIUM 2.1 mg/dL (1.8-2.4); PHOSPHORUS 2.5 mg/dL (2.5-4.9); POTASSIUM 4.3 mmol/L (3.5-5.1); SODIUM SERUM 139 mmol/L (136-145); TOTAL PROTEIN, SERUM 7.4 g/dL (6.4-8.2); UREA NITROGEN, BLOOD 26 mg/dL (7-18)
[2020-12-22 13:15] LABS: BILIRUBIN,URINE NEGATIVE (NEGATIVE); COLOR,URINE YELLOW (YELLOW); LEUKOCYTE ESTERASE ,URINE LARGE (NEGATIVE); NITRITE, URINE POSITIVE (NEGATIVE); PH,URINE 5.5 (5.0-8.0); PROTEIN,URINE 100 mg/dl (NEGATIVE); UGLUCOSE NEGATIVE (NEGATIVE); UROBILINOGEN,URINE 0.2 EU/dL (0.2)
[2020-12-22 17:01] LABS: RBC,URINE 21-50 /HPF (0-2)
[2020-12-22 17:02] LABS: BACTERIA,URINE Many /HPF (None Seen); SQUAMOUS EPITHELIAL CELL,UR Few /HPF (None Seen); WBC,URINE 51-80 /HPF (0-3)
[2020-12-22 17:44] LABS: URINE TOTAL PROTEIN 195.6 mg/dL (0-11.9)
[2020-12-23 09:07] LABS: COMPLEMENT C3, SERUM 176 mg/dL (82-167); COMPLEMENT C4, SERUM 28 mg/dL (12-38)
[2020-12-23 14:07] LABS: *SPE A/G RATIO 0.7 (0.7-1.7); *SPE ALPHA-1-GLOBULIN 0.3 g/dL (0.0-0.4); *SPE ALPHA-2-GLOBULIN 1.1 g/dL (0.4-1.0); *SPE BETA GLOBULIN 1.3 g/dL (0.7-1.3); *SPE M-SPIKE Not Observed g/dL (Not Observed)
== END 2020-12-22 23:59 | disposition home or self-care (01) ==
LOC: MSC 10:04
PROVIDERS: ATTEND Internal Medicine
DX: E11.22 Type 2 diabetes mellitus with diabetic chronic kidney disease (principal); I12.9 Hypertensive chronic kidney disease with stage 1 through stage 4 chronic kidney disease, or unspecified chronic kidney disease; N18.32 Chronic kidney disease, stage 3b; Z79.84 Long term (current) use of oral hypoglycemic drugs; Z79.899 Other long term (current) drug therapy; R60.0 Localized edema; E83.9 Disorder of mineral metabolism, unspecified; E78.5 Hyperlipidemia, unspecified; Z96.0 Presence of urogenital implants; Z95.0 Presence of cardiac pacemaker; Z79.01 Long term (current) use of anticoagulants
CPT/HCPCS: 36415; 80053; 80061; 81001; 82043; 82570; 83036; 83735; 83880; 83970; 84100; 84155 ×2; 84165; 84443; 85025; 85652; 86140; 86160 ×2; 87086; G0463; 82306; 87186-TC

== ENCOUNTER → 2020-12-29 | Outpatient (CLI) | payer MEDICARE, OTHER | END | disposition home or self-care (01) | LOC: MSC 14:30 | PROVIDERS: ATTEND Internal Medicine | DX: R10.9 Unspecified abdominal pain (principal); I12.9 Hypertensive chronic kidney disease with stage 1 through stage 4 chronic kidney disease, or unspecified chronic kidney disease; E11.22 Type 2 diabetes mellitus with diabetic chronic kidney disease; N18.32 Chronic kidney disease, stage 3b; Z79.84 Long term (current) use of oral hypoglycemic drugs; E03.8 Other specified hypothyroidism; E83.9 Disorder of mineral metabolism, unspecified; M89.9 Disorder of bone, unspecified; R60.0 Localized edema; E78.5 Hyperlipidemia, unspecified; Z95.0 Presence of cardiac pacemaker; Z79.01 Long term (current) use of anticoagulants; Z79.899 Other long term (current) drug therapy ==

== ENCOUNTER 2021-01-04 10:36 | Outpatient (CLI) | payer MEDICARE, OTHER ==
[2021-01-04 11:14] LABS: BASOPHILS % (AUTO) 0.5 % (0.0-2.0); EOSINOPHILS % (AUTO) 2.2 % (0.0-6.0); HEMATOCRIT 31 % (33-45); HEMOGLOBIN 9.8 g/dL (11.5-14.8); LYMPHOCYTES # (AUTO) 1.6 K/uL (0.8-4.8); LYMPHOCYTES % (AUTO) 21.9 % (20.0-44.0); MEAN CORPUSCULAR HGB CONC 32 g/dl (31.0-36.0); MEAN CORPUSCULAR VOLUME 85 fL (82-100); MONOCYTES # (AUTO) 0.6 K/uL (0.1-1.30); MONOCYTES % (AUTO) 7.4 % (2.0-12.0); NEUTROPHILS # (AUTO) 5.1 K/uL (1.8-8.9); PLATELET COUNT (AUTO) 256 K/uL (150-450); RED BLOOD CELL COUNT(AUTO) 3.63 MIL/uL (4.0-5.2); WHITE BLOOD COUNT (AUTO) 7.5 K/uL (4.3-11.0)
[2021-01-04 11:34] LABS: ALANINE AMINOTRANSFERASE 29 U/L (12-78); ALBUMIN 2.7 g/dL (3.4-5.0); ALKALINE PHOSPHATASE 92 U/L (46-116); ASPARTATE AMINOTRANSFERASE 23 U/L (15-37); BILIRUBIN,TOTAL 0.2 mg/dL (0.2-1.0); CALCIUM, SERUM 7.9 mg/dL (8.5-10.1); CARBON DIOXIDE 26 mmol/L (21-32); CHLORIDE 104 mmol/L (98-107); CREATININE 1.4 mg/dL (0.6-1.3); GLUCOSE 189 mg/dL (74-106); MAGNESIUM 1.9 mg/dL (1.8-2.4); PHOSPHORUS 3.2 mg/dL (2.5-4.9); POTASSIUM 3.4 mmol/L (3.5-5.1); SODIUM SERUM 140 mmol/L (136-145); TOTAL PROTEIN, SERUM 7.3 g/dL (6.4-8.2); UREA NITROGEN, BLOOD 17 mg/dL (7-18)
[2021-01-04 11:51] LABS: CHOLESTEROL 179 mg/dL (<200); HDL CHOLESTEROL 58 mg/dL (40-60); LDL 74 mg/dL (0-99); THYROID STIMULATING HORMONE 3.354 uIU/mL (0.358-3.74); TRIGLYCERIDES 205 mg/dL (30-150)
[2021-01-04 12:29] LABS: BILIRUBIN,URINE NEGATIVE (NEGATIVE); COLOR,URINE YELLOW (YELLOW); LEUKOCYTE ESTERASE ,URINE MODERATE (NEGATIVE); NITRITE, URINE POSITIVE (NEGATIVE); PROTEIN,URINE 100 mg/dl (NEGATIVE); UGLUCOSE 100 MG/DL mg/dL (NEGATIVE); UROBILINOGEN,URINE 0.2 EU/dL (0.2)
[2021-01-04 12:35] LABS: C-REACTIVE PROTEIN 1.9 mg/dL (0.0-0.9)
[2021-01-04 14:13] LABS: WBC,URINE TOO NUMEROUS TO COUN /HPF (0-3)
[2021-01-04 14:14] LABS: BACTERIA,URINE Moderate /HPF (None Seen); RBC,URINE 51-80 /HPF (0-2); SQUAMOUS EPITHELIAL CELL,UR Few /HPF (None Seen)
== END 2021-01-04 23:59 | disposition home or self-care (01) ==
LOC: LAB 10:36
PROVIDERS: ATTEND Internal Medicine
DX: I10 Essential (primary) hypertension (principal); E11.9 Type 2 diabetes mellitus without complications; E78.5 Hyperlipidemia, unspecified
CPT/HCPCS: 36415; 80053-TC; 80061-TC; 81001; 82306; 83735-TC; 84100-TC; 84439-TC; 84443-TC; 85025-TC; 85652-TC; 86140-TC; 87086-TC

== ENCOUNTER → 2021-01-11 | Outpatient (CLI) | payer MEDICARE, OTHER | END | disposition home or self-care (01) | LOC: MSC 16:00 | PROVIDERS: ATTEND Internal Medicine | DX: N39.0 Urinary tract infection, site not specified (principal); I12.9 Hypertensive chronic kidney disease with stage 1 through stage 4 chronic kidney disease, or unspecified chronic kidney disease; E11.22 Type 2 diabetes mellitus with diabetic chronic kidney disease; N18.32 Chronic kidney disease, stage 3b; Z79.84 Long term (current) use of oral hypoglycemic drugs; Z79.899 Other long term (current) drug therapy; E03.8 Other specified hypothyroidism; R10.9 Unspecified abdominal pain; E83.9 Disorder of mineral metabolism, unspecified; M89.9 Disorder of bone, unspecified; R60.0 Localized edema; E78.5 Hyperlipidemia, unspecified; Z95.0 Presence of cardiac pacemaker; Z79.01 Long term (current) use of anticoagulants ==

== ENCOUNTER 2022-03-20 19:16 | Emergency (ER) | payer MEDICARE, OTHER ==
[~2022-03-20] VITALS: Ht 142.2 cm; Wt 104.3 kg
--- NOTE | 2022-03-20 19:35 | NUR ---
[id number]. LOWER ABD PAIN RADIATING TO BACK STARTED THIS MORNING +NAUSEA. PATIENT IS AAOX4. ABLE TO MAKE NEEDS KNOWN. AMBULATORY. PLACED COMFORTABLY IN BED. VITALS CHECKED.
--- NOTE | 2022-03-20 19:42 | NUR ---
PATIENT CANNOT PROVIDE URINE AT THE MOMENT
[2022-03-20] MEDS ORDERED: KETOROLAC TROMETHAMINE 15 MG/ML VIAL ONE (19:54)
[2022-03-20] MEDS ORDERED: ONDANSETRON HCL/PF 4 MG/2 ML VIAL ONE (19:54)
[2022-03-20] MEDS ORDERED: KETOROLAC TROMETHAMINE INJ 30 MG/ML VIAL IV ONE (20:00)
[2022-03-20] MEDS ORDERED: ONDANSETRON HCL/PF 4 MG/2 ML VIAL IVP ONE (20:00)
[2022-03-20 20:29] LABS: BASOPHILS # (AUTO) 0.1 K/uL (0.0-0.2); BASOPHILS % (AUTO) 0.5 % (0.0-2.0); EOSINOPHILS % (AUTO) 0.4 % (0.0-6.0); HEMATOCRIT 38 % (33-45); HEMOGLOBIN 12.2 g/dL (11.5-14.8); LYMPHOCYTES # (AUTO) 1.4 K/uL (0.8-4.8); LYMPHOCYTES % (AUTO) 9.9 % (20.0-44.0); MEAN CORPUSCULAR HGB CONC 32 g/dl (31.0-36.0); MEAN CORPUSCULAR VOLUME 87 fL (82-100); MONOCYTES # (AUTO) 0.7 K/uL (0.1-1.30); MONOCYTES % (AUTO) 5.4 % (2.0-12.0); NEUTROPHILS # (AUTO) 11.5 K/uL (1.8-8.9); NEUTROPHILS % (AUTO) 83.8 % (43.0-81.0); PLATELET COUNT (AUTO) 179 K/uL (150-450); RED BLOOD CELL COUNT(AUTO) 4.41 MIL/uL (4.0-5.2); WHITE BLOOD COUNT (AUTO) 13.7 K/uL (4.3-11.0)
--- NOTE | 2022-03-20 20:41 | NUR ---
FF UP CT DEPT FOR PT'S CT SCAN
--- NOTE | 2022-03-20 20:44 | NUR ---
BROUGHT TO CT DEPT
--- NOTE | 2022-03-20 20:54 | NUR ---
CAME BACK FROM CT DEPT
[2022-03-20 21:00] LABS: ALANINE AMINOTRANSFERASE 18 U/L (12-78); ALKALINE PHOSPHATASE 86 U/L (46-116); ASPARTATE AMINOTRANSFERASE 15 U/L (15-37); BILIRUBIN,DIRECT 0.1 mg/dL (0.0-0.2); BILIRUBIN,TOTAL 0.3 mg/dL (0.2-1.0); CALCIUM, SERUM 8.6 mg/dL (8.5-10.1); CARBON DIOXIDE 24 mmol/L (21-32); CHLORIDE 100 mmol/L (98-107); CREATININE 1.7 mg/dL (0.6-1.3); GLUCOSE 274 mg/dL (74-106); LIPASE 258 U/L (73-393); POTASSIUM 4.5 mmol/L (3.5-5.1); SODIUM SERUM 134 mmol/L (136-145); TOTAL PROTEIN, SERUM 7.5 g/dL (6.4-8.2); UREA NITROGEN, BLOOD 25 mg/dL (7-18)
[2022-03-20] MEDS ORDERED: CIPR500T5 PO (21:53)
[2022-03-20] MEDS ORDERED: TAMS-12 PO (21:53)
[2022-03-20] MEDS ORDERED: CIPROFLOXACIN HCL 500 MG TABLET PO ONE (22:00)
[2022-03-20] MEDS ORDERED: TAMSULOSIN 0.4 MG CAP.SR.24H PO ONE (22:00)
--- NOTE | 2022-03-20 22:42 | NUR ---
IV CANNULA REMOVED. DISCHARGE INSTRUCTION GIVEN TO PATIENT. CALLED SON SUNDAY AND EXPLAINED TO HIM THE FINDINGS OF THE RESULT. HE WILL COME TO TELEPHONE LINES REPAIRER PT IN 30 MINS
[2022-03-20] MEDS ORDERED: CIPROFLOXACIN HCL 500 MG TABLET ONE (22:53)
[2022-03-20] MEDS ORDERED: TAMSULOSIN 0.4 MG CAP.SR.24H ONE (22:53)
[2022-03-20 23:09] VITALS: BP 160/72
--- NOTE | 2022-03-20 23:10 | NUR ---
Patient discharged to home in stable condition. Written and verbal after care instructions given. Patient verbalizes understanding of instruction.
== END 2022-03-20 23:10 | disposition home or self-care (01) ==
LOC: ER 19:18
DX: N20.0 Calculus of kidney (principal); I10 Essential (primary) hypertension; E11.9 Type 2 diabetes mellitus without complications; Z98.890 Other specified postprocedural states; Z60.2 Problems related to living alone; Z79.84 Long term (current) use of oral hypoglycemic drugs; Z79.899 Other long term (current) drug therapy
CPT/HCPCS: 99285; 74176; 96374; 96375; 85025; 80048; 83690; 80076; 36415; J2405; J1885

== ENCOUNTER 2022-12-30 14:43 | Inpatient (IN) | payer MEDICARE, OTHER ==
[~2022-12-30] VITALS: Ht 162.6 cm; Wt 87.2 kg
[~2022-12-30 14:43] MED LIST changes: +CIPR500T5 PO; +TAMS-12 PO
[2022-12-30 15:33] LABS: BASOPHILS # (AUTO) 0.1 K/uL (0.0-0.2); BASOPHILS % (AUTO) 1.4 % (0.0-2.0); EOSINOPHILS # (AUTO) 0.2 K/uL (0.0-0.7); EOSINOPHILS % (AUTO) 1.8 % (0.0-6.0); HEMATOCRIT 29 % (33-45); HEMOGLOBIN 9.1 g/dL (11.5-14.8); LYMPHOCYTES % (AUTO) 22.6 % (20.0-44.0); MEAN CORPUSCULAR HEMOGLOBIN 25 PG (26.0-33.0); MEAN CORPUSCULAR HGB CONC 32 g/dl (31.0-36.0); MEAN CORPUSCULAR VOLUME 78 fL (82-100); MONOCYTES # (AUTO) 0.4 K/uL (0.1-1.30); NEUTROPHILS # (AUTO) 6.2 K/uL (1.8-8.9); NEUTROPHILS % (AUTO) 69.2 % (43.0-81.0); PLATELET COUNT (AUTO) 238 K/uL (150-450); RED BLOOD CELL COUNT(AUTO) 3.71 MIL/uL (4.0-5.2); RED CELL DISTRIBUTION WIDTH 17.3 % (11.5-15.0); WHITE BLOOD COUNT (AUTO) 8.9 K/uL (4.3-11.0)
[2022-12-30 15:46] LABS: CALCIUM, SERUM 8.7 mg/dL (8.5-10.1); CARBON DIOXIDE 23 mmol/L (21-32); CHLORIDE 102 mmol/L (98-107); CREATININE 1.4 mg/dL (0.6-1.3); GLUCOSE 141 mg/dL (74-106); POTASSIUM 4.2 mmol/L (3.5-5.1); SODIUM SERUM 136 mmol/L (136-145); UREA NITROGEN, BLOOD 25 mg/dL (7-18)
[2022-12-30 15:57] LABS: ALANINE AMINOTRANSFERASE 17 U/L (12-78); ALBUMIN 3.3 g/dL (3.4-5.0); ALKALINE PHOSPHATASE 73 U/L (46-116); ASPARTATE AMINOTRANSFERASE 13 U/L (15-37); BILIRUBIN,DIRECT 0.1 mg/dL (0.0-0.2); BILIRUBIN,TOTAL 0.1 mg/dL (0.2-1.0); NT-PRO BNP 1672 pg/mL (0-125); TOTAL PROTEIN, SERUM 7.7 g/dL (6.4-8.2)
[2022-12-30 16:00] LABS: INR 1.02 (0.91-1.10); PARTIAL THROMBOPLASTIN TIME 26.7 SEC (24.3-34.3); PROTHROMBIN TIME 10.8 SECS (9.2-11.1)
[2022-12-30] MEDS: METOPROLOL TARTRATE 50 MG TABLET PO SCH ×2 (17:00→21:00)
[2022-12-30] MEDS: APIXABAN 2.5 MG TABLET PO SCH ×2 (17:00→22:06)
[2022-12-30] MEDS: DILTIAZEM HCL CD 180 MG PO SCH ×2 (17:08→22:10)
[2022-12-30] MEDS ORDERED: ACETAMINOPHEN ES 500 MG TABLET PO PRN (17:30)
[2022-12-30] MEDS ORDERED: DEXTROSE 50%-WATER 50 ML DISP.SYRIN IV PRN (18:00)
[2022-12-30] MEDS ORDERED: INSU100I4 SQ (18:48)
[2022-12-30] MEDS ORDERED: GLIM1TAB18 PO (18:48)
[2022-12-30] MEDS ORDERED: INSU100I26 SQ (18:48)
[2022-12-30] MEDS ORDERED: DILT-32 PO (18:48)
[2022-12-30] MEDS ORDERED: ICOS1CAP PO (18:48)
[2022-12-30] MEDS ORDERED: CLOP75TA15 PO (18:48)
[2022-12-30] MEDS ORDERED: ERGO500093 PO (18:48)
[2022-12-30] MEDS ORDERED: FOLI0.4T6 PO (18:48)
[2022-12-30] MEDS ORDERED: LORA10TA7 PO (18:48)
[2022-12-30] MEDS ORDERED: LATA5DRO EACHEYE (18:48)
[2022-12-30] MEDS ORDERED: ALLO100T PO (18:48)
[2022-12-30] MEDS ORDERED: METF-867 PO (18:48)
[2022-12-30] MEDS ORDERED: DAPA10TA PO (18:48)
[2022-12-30] MEDS ORDERED: DEXL60CA3 PO (18:48)
[2022-12-30] MEDS ORDERED: APIX2.5T PO (18:48)
[2022-12-30] MEDS ORDERED: METO50TA16 PO (18:48)
[2022-12-30] MEDS ORDERED: OLME40TA18 PO (18:48)
[2022-12-30 19:12] LABS: ANISOCYTOSIS 1+; EOSINOPHILS % (MANUAL) 3 % (0-4); LYMPHOCYTES % (MANUAL) 23 % (16-48); MONOCYTES % (MANUAL) 2 % (0-11.0); NEUTROPHILS % (MANUAL) 72 (42-76); PLATELET ESTIMATE ADEQUATE
[2022-12-30 20:00] VITALS: BP 147/92; TEMP 98; O2SAT 96
[2022-12-30] MEDS: BLOOD SUGAR DIAGNOSTIC 1 EACH STRIP VI SCH (22:07)
[2022-12-30] MEDS: *INSULIN REGULAR(HUMULIN R)HUM 100 UNIT/ML VIAL SQ PRN (22:08)
[2022-12-31] VITALS: BP 132/65; TEMP 97.7; O2SAT 95
[2022-12-31 04:00] VITALS: BP 114/76; TEMP 98; O2SAT 96
[2022-12-31 06:35] LABS: CALCIUM, SERUM 8.7 mg/dL (8.5-10.1); CARBON DIOXIDE 25 mmol/L (21-32); CHLORIDE 102 mmol/L (98-107); CREATININE 1.4 mg/dL (0.6-1.3); GLUCOSE 164 mg/dL (74-106); POTASSIUM 4.4 mmol/L (3.5-5.1); SODIUM SERUM 137 mmol/L (136-145); UREA NITROGEN, BLOOD 23 mg/dL (7-18)
[2022-12-31 06:40] LABS: BASOPHILS % (AUTO) 0.4 % (0.0-2.0); EOSINOPHILS # (AUTO) 0.1 K/uL (0.0-0.7); EOSINOPHILS % (AUTO) 1.7 % (0.0-6.0); HEMATOCRIT 27 % (33-45); HEMOGLOBIN 8.6 g/dL (11.5-14.8); LYMPHOCYTES # (AUTO) 1.8 K/uL (0.8-4.8); LYMPHOCYTES % (AUTO) 23.6 % (20.0-44.0); MEAN CORPUSCULAR HEMOGLOBIN 24 PG (26.0-33.0); MEAN CORPUSCULAR HGB CONC 31 g/dl (31.0-36.0); MEAN CORPUSCULAR VOLUME 78 fL (82-100); MONOCYTES # (AUTO) 0.6 K/uL (0.1-1.30); MONOCYTES % (AUTO) 7.3 % (2.0-12.0); NEUTROPHILS # (AUTO) 5.2 K/uL (1.8-8.9); PLATELET COUNT (AUTO) 208 K/uL (150-450); RED BLOOD CELL COUNT(AUTO) 3.53 MIL/uL (4.0-5.2); RED CELL DISTRIBUTION WIDTH 17.1 % (11.5-15.0); WHITE BLOOD COUNT (AUTO) 7.8 K/uL (4.3-11.0)
[2022-12-31] MEDS: BLOOD SUGAR DIAGNOSTIC 1 EACH STRIP VI SCH ×4 (07:27→22:31)
[2022-12-31] MEDS: *INSULIN REGULAR(HUMULIN R)HUM 100 UNIT/ML VIAL SQ PRN ×4 (07:28→22:10)
[2022-12-31 08:00] VITALS: BP 151/68; TEMP 98; O2SAT 96
[2022-12-31] MEDS: FOLIC ACID 1 MG TABLET PO SCH (08:35)
[2022-12-31] MEDS: CLOPIDOGREL BISULFATE 75 MG TABLET PO SCH (08:35)
[2022-12-31] MEDS: METOPROLOL TARTRATE 50 MG TABLET PO SCH ×2 (08:37→16:17)
[2022-12-31] MEDS: APIXABAN 2.5 MG TABLET PO SCH ×2 (08:38→16:48)
[2022-12-31] MEDS: DEXLANSOPRAZOLE 60 MG PO SCH (08:40)
[2022-12-31] MEDS: DAPAGLIFLOZIN 10 MG PO SCH (08:40)
[2022-12-31] MEDS: ICOSAPENT ETHYL 1 GM PO SCH ×2 (08:40→17:20)
[2022-12-31] MEDS ORDERED: FUROSEMIDE 40 MG/4 ML VIAL IV SCH (11:30)
[2022-12-31 12:00] VITALS: BP 145/80; TEMP 98; O2SAT 96
[2022-12-31 16:00] VITALS: BP 142/80; TEMP 98.6; O2SAT 96
[2022-12-31] MEDS: LATANOPROSTENE BUNOD EACHEYE SCH (17:11)
[2022-12-31 20:00] VITALS: BP 117/91; TEMP 97.9; O2SAT 97
[2022-12-31] MEDS ORDERED: DILTIAZEM HCL CD 240 MG ONE (22:21)
[2022-12-31] MEDS: DILTIAZEM HCL CD 180 MG PO SCH (22:32)
[2023-01-01] VITALS: BP 135/87; TEMP 97.8; O2SAT 97
[2023-01-01 04:00] VITALS: BP 125/77; TEMP 97.7; O2SAT 96
[2023-01-01 07:04] LABS: BASOPHILS % (AUTO) 0.7 % (0.0-2.0); EOSINOPHILS # (AUTO) 0.2 K/uL (0.0-0.7); EOSINOPHILS % (AUTO) 2.3 % (0.0-6.0); HEMATOCRIT 28 % (33-45); HEMOGLOBIN 8.9 g/dL (11.5-14.8); LYMPHOCYTES # (AUTO) 1.9 K/uL (0.8-4.8); LYMPHOCYTES % (AUTO) 26.5 % (20.0-44.0); MEAN CORPUSCULAR HEMOGLOBIN 24 PG (26.0-33.0); MEAN CORPUSCULAR HGB CONC 31 g/dl (31.0-36.0); MEAN CORPUSCULAR VOLUME 77 fL (82-100); MONOCYTES # (AUTO) 0.6 K/uL (0.1-1.30); MONOCYTES % (AUTO) 8.7 % (2.0-12.0); NEUTROPHILS # (AUTO) 4.3 K/uL (1.8-8.9); NEUTROPHILS % (AUTO) 61.8 % (43.0-81.0); PLATELET COUNT (AUTO) 196 K/uL (150-450); RED BLOOD CELL COUNT(AUTO) 3.68 MIL/uL (4.0-5.2); RED CELL DISTRIBUTION WIDTH 17.2 % (11.5-15.0)
[2023-01-01 08:00] VITALS: BP 124/85; TEMP 97.5; O2SAT 97
[2023-01-01] MEDS: BLOOD SUGAR DIAGNOSTIC 1 EACH STRIP VI SCH ×4 (08:00→22:59)
[2023-01-01] MEDS: INSULIN REGULAR, HUMAN 100 UNIT/ML 3 ML VIAL SQ PRN ×3 (08:01→17:38)
[2023-01-01 08:03] LABS: CALCIUM, SERUM 8.7 mg/dL (8.5-10.1); CARBON DIOXIDE 25 mmol/L (21-32); CHLORIDE 103 mmol/L (98-107); CREATININE 1.4 mg/dL (0.6-1.3); GLUCOSE 171 mg/dL (74-106); POTASSIUM 4.1 mmol/L (3.5-5.1); SODIUM SERUM 139 mmol/L (136-145); UREA NITROGEN, BLOOD 26 mg/dL (7-18)
[2023-01-01] MEDS: ICOSAPENT ETHYL 1 GM PO SCH ×2 (09:17→17:39)
[2023-01-01] MEDS: METOPROLOL TARTRATE 50 MG TABLET PO SCH ×2 (09:17→17:39)
[2023-01-01] MEDS: DEXLANSOPRAZOLE 60 MG PO SCH (09:17)
[2023-01-01] MEDS: CLOPIDOGREL BISULFATE 75 MG TABLET PO SCH (09:18)
[2023-01-01] MEDS: FOLIC ACID 1 MG TABLET PO SCH (09:18)
[2023-01-01] MEDS: APIXABAN 2.5 MG TABLET PO SCH ×2 (09:18→17:38)
[2023-01-01] MEDS: DAPAGLIFLOZIN 10 MG PO SCH (09:48)
[2023-01-01] MEDS ORDERED: FUROSEMIDE 20 MG/2 ML VIAL IV ONE (11:00)
[2023-01-01] MEDS ORDERED: AMIODARONE 150 MG in IV D5W 100 ML IV ONE (11:00)
[2023-01-01] MEDS: AMIODARONE 450 MG in IV D5W 241 ML IV PRN ×2 (11:11→17:33)
[2023-01-01 12:00] VITALS: BP 125/61; TEMP 97.6; O2SAT 97
[2023-01-01 16:00] VITALS: BP 133/56; TEMP 97.5; O2SAT 96
[2023-01-01] MEDS: LATANOPROSTENE BUNOD EACHEYE SCH (17:41)
[2023-01-01 20:00] VITALS: BP 116/53; TEMP 97.9; O2SAT 97
[2023-01-01] MEDS ORDERED: DILTIAZEM HCL CD 240 MG ONE (22:47)
[2023-01-01] MEDS: DILTIAZEM HCL CD 180 MG PO SCH (22:53)
[2023-01-01] MEDS: *INSULIN REGULAR(HUMULIN R)HUM 100 UNIT/ML VIAL SQ PRN (23:02)
[2023-01-02] VITALS: BP 129/47; TEMP 98; O2SAT 96
[2023-01-02 04:00] VITALS: BP 130/51; TEMP 98.2; O2SAT 97
[2023-01-02 06:30] LABS: BASOPHILS # (AUTO) 0.1 K/uL (0.0-0.2); BASOPHILS % (AUTO) 0.6 % (0.0-2.0); EOSINOPHILS # (AUTO) 0.2 K/uL (0.0-0.7); HEMATOCRIT 30 % (33-45); HEMOGLOBIN 9.8 g/dL (11.5-14.8); LYMPHOCYTES % (AUTO) 20.4 % (20.0-44.0); MEAN CORPUSCULAR HEMOGLOBIN 25 PG (26.0-33.0); MEAN CORPUSCULAR HGB CONC 33 g/dl (31.0-36.0); MEAN CORPUSCULAR VOLUME 77 fL (82-100); MONOCYTES # (AUTO) 0.9 K/uL (0.1-1.30); MONOCYTES % (AUTO) 9.1 % (2.0-12.0); NEUTROPHILS # (AUTO) 6.5 K/uL (1.8-8.9); NEUTROPHILS % (AUTO) 67.9 % (43.0-81.0); PLATELET COUNT (AUTO) 228 K/uL (150-450); RED BLOOD CELL COUNT(AUTO) 3.89 MIL/uL (4.0-5.2); RED CELL DISTRIBUTION WIDTH 17.3 % (11.5-15.0); WHITE BLOOD COUNT (AUTO) 9.6 K/uL (4.3-11.0)
[2023-01-02 07:23] LABS: CALCIUM, SERUM 9.1 mg/dL (8.5-10.1); CARBON DIOXIDE 27 mmol/L (21-32); CHLORIDE 101 mmol/L (98-107); CREATININE 1.4 mg/dL (0.6-1.3); GLUCOSE 191 mg/dL (74-106); POTASSIUM 3.7 mmol/L (3.5-5.1); SODIUM SERUM 136 mmol/L (136-145); UREA NITROGEN, BLOOD 27 mg/dL (7-18)
[2023-01-02 08:00] VITALS: BP 118/70; TEMP 97.7; O2SAT 95
[2023-01-02] MEDS: BLOOD SUGAR DIAGNOSTIC 1 EACH STRIP VI SCH (08:06)
[2023-01-02] MEDS: INSULIN REGULAR, HUMAN 100 UNIT/ML 3 ML VIAL SQ PRN (08:08)
[2023-01-02] MEDS ORDERED: POTASSIUM CHLORIDE 20 MEQ POWDER PACKET PO ONE (09:30)
[2023-01-02 10:00] VITALS: BP 124/64; TEMP 98.1; O2SAT 97
[2023-01-02] MEDS: CLOPIDOGREL BISULFATE 75 MG TABLET PO SCH (10:08)
[2023-01-02] MEDS: METOPROLOL TARTRATE 50 MG TABLET PO SCH (10:08)
[2023-01-02] MEDS: FOLIC ACID 1 MG TABLET PO SCH (10:09)
[2023-01-02] MEDS: APIXABAN 2.5 MG TABLET PO SCH (10:10)
[2023-01-02] MEDS: DEXLANSOPRAZOLE 60 MG PO SCH (10:14)
[2023-01-02] MEDS: ICOSAPENT ETHYL 1 GM PO SCH (11:05)
[2023-01-02] MEDS: DAPAGLIFLOZIN 10 MG PO SCH (11:05)
[2023-01-02 12:00] VITALS: BP 124/64; TEMP 98.1; O2SAT 97
== END 2023-01-02 12:16 | disposition home or self-care (01) | DRG 291 ==
LOC: ER 14:49 → TELE1 17:41 → TELE-TD 01-01 12:00 → TELE1 01-02 09:54
PROVIDERS: ADMIT Nurse Practitioner Family; ATTEND Nurse Practitioner Family
PROC: 05H533Z Insertion of Infusion Device into Right Subclavian Vein, Percutaneous Approach (ICD-10-PCS; principal; 2023-01-01)
PROC: B546ZZA Ultrasonography of Right Subclavian Vein, Guidance (ICD-10-PCS; 2023-01-01)
DX: I13.0 Hypertensive heart and chronic kidney disease with heart failure and stage 1 through stage 4 chronic kidney disease, or unspecified chronic kidney disease (principal); I50.31 Acute diastolic (congestive) heart failure; N17.0 Acute kidney failure with tubular necrosis; N18.9 Chronic kidney disease, unspecified; I48.0 Paroxysmal atrial fibrillation; E11.22 Type 2 diabetes mellitus with diabetic chronic kidney disease; E78.5 Hyperlipidemia, unspecified; E11.65 Type 2 diabetes mellitus with hyperglycemia; Z87.442 Personal history of urinary calculi; Z79.84 Long term (current) use of oral hypoglycemic drugs; Z79.01 Long term (current) use of anticoagulants; Z95.0 Presence of cardiac pacemaker; E11.51 Type 2 diabetes mellitus with diabetic peripheral angiopathy without gangrene; D50.9 Iron deficiency anemia, unspecified; K76.9 Liver disease, unspecified
CPT/HCPCS: 36415; 71045-TC; 80048-TC; 80076-TC; 82962-TC; 83880; 84484-TC; 85025-TC; 85730-TC; A4223; G0378; J0282; J1815; J1940; J7060

== ENCOUNTER 2023-09-18 17:35 | Emergency (ER) | payer MEDICARE, OTHER ==
[~2023-09-18] VITALS: Ht 154.9 cm; Wt 85.3 kg
[~2023-09-18 17:35] MED LIST changes: -AMIO200T5 PO; -AMLO-212 PO; +APIX2.5T PO; -CIPR500T5 PO; +CLOP75TA15 PO; +DAPA10TA PO; +ERGO500093 PO; +FOLI0.4T6 PO; -FURO40TA5 PO; +ICOS1CAP PO; +INSU100I26 SQ; +INSU100I4 SQ; +LATA5DRO EACHEYE; +LORA10TA7 PO; +METO50TA16 PO; -OLME1TAB90 PO; +OLME40TA18 PO; -POTA8TAB3 PO; -RIVA10TA PO; -TAMS-12 PO
[2023-09-18 18:13] LABS: BASOPHILS % (AUTO) 0.3 % (0.0-2.0); EOSINOPHILS % (AUTO) 0.4 % (0.0-6.0); HEMATOCRIT 39 % (33-45); HEMOGLOBIN 12.5 g/dL (11.5-14.8); LYMPHOCYTES % (AUTO) 8.5 % (20.0-44.0); MEAN CORPUSCULAR HEMOGLOBIN 27 PG (26.0-33.0); MEAN CORPUSCULAR HGB CONC 32 g/dl (31.0-36.0); MEAN CORPUSCULAR VOLUME 86 fL (82-100); MONOCYTES # (AUTO) 0.7 K/uL (0.1-1.30); NEUTROPHILS # (AUTO) 10.3 K/uL (1.8-8.9); NEUTROPHILS % (AUTO) 84.8 % (43.0-81.0); PLATELET COUNT (AUTO) 122 K/uL (150-450); RED BLOOD CELL COUNT(AUTO) 4.57 MIL/uL (4.0-5.2); RED CELL DISTRIBUTION WIDTH 20.6 % (11.5-15.0); WHITE BLOOD COUNT (AUTO) 12.1 K/uL (4.3-11.0)
[2023-09-18 18:27] LABS: CALCIUM, SERUM 8.2 mg/dL (8.5-10.1); CARBON DIOXIDE 22 mmol/L (21-32); CHLORIDE 104 mmol/L (98-107); CREATININE 1.5 mg/dL (0.6-1.3); GLUCOSE 133 mg/dL (74-106); POTASSIUM 3.8 mmol/L (3.5-5.1); SODIUM SERUM 132 mmol/L (136-145); UREA NITROGEN, BLOOD 21 mg/dL (7-18)
[2023-09-18 18:34] LABS: ALANINE AMINOTRANSFERASE 23 U/L (12-78); ALBUMIN 2.7 g/dL (3.4-5.0); ALKALINE PHOSPHATASE 56 U/L (46-116); ASPARTATE AMINOTRANSFERASE 17 U/L (15-37); BILIRUBIN,DIRECT 0.1 mg/dL (0.0-0.2); BILIRUBIN,TOTAL 0.2 mg/dL (0.2-1.0); LIPASE 37 U/L (16-77); TOTAL PROTEIN, SERUM 7.3 g/dL (6.4-8.2)
[2023-09-18] MEDS ORDERED: ONDANSETRON HCL/PF 4 MG/2 ML VIAL ONE (18:50)
[2023-09-18] MEDS ORDERED: MORPHINE SULFATE INJ 2 MG/ML DISP.SYRIN ONE (18:50)
[2023-09-18] MEDS: IV NS 0.9% 500 ML BAG IV ONE (18:56)
[2023-09-18] MEDS: ONDANSETRON HCL/PF - ER 4 MG/2 ML VIAL IV ONE (18:57)
[2023-09-18] MEDS: MORPHINE SULFATE INJ 2 MG/ML DISP.SYRIN IV ONE (18:57)
[2023-09-18] MEDS ORDERED: AMOX/CLAVULANATE 875 MG TABLET ONE (20:02)
[2023-09-18 20:05] LABS: APPEARANCE,URINE Clear (CLEAR); BILIRUBIN,URINE Negative (NEGATIVE); BLOOD, URINE Trace-lysed Ery/uL (NEGATIVE); COLOR,URINE YELLOW (YELLOW); KETONES,URINE Negative (NEGATIVE); LEUKOCYTE ESTERASE ,URINE Negative (NEGATIVE); NITRITE, URINE Positive (NEGATIVE); PH,URINE 5.5 (5.0-8.0); PROTEIN,URINE 30 mg/dl (NEGATIVE); UGLUCOSE 100 MG/DL mg/dL (NEGATIVE); UROBILINOGEN,URINE 0.2 EU/dL (0.2)
[2023-09-18] MEDS: AMOX/CLAVULANATE 875 MG TABLET PO ONE (20:05)
[2023-09-18] MEDS ORDERED: AMOX-430 PO (20:14)
[2023-09-18 20:22] VITALS: BP 145/77; TEMP 99.6; O2SAT 98
[2023-09-18 22:09] LABS: ADD URINE CULTURE YES; BACTERIA,URINE 3+ /HPF (None Seen); SQUAMOUS EPITHELIAL CELL,UR 0-2 /HPF (None Seen)
[2023-09-18 22:10] LABS: YEAST,URINE Few /HPF (None Seen)
== END 2023-09-18 20:22 | disposition home or self-care (01) ==
LOC: ER 17:47
DX: K52.9 Noninfective gastroenteritis and colitis, unspecified (principal); K57.30 Diverticulosis of large intestine without perforation or abscess without bleeding; N39.0 Urinary tract infection, site not specified; R10.30 Lower abdominal pain, unspecified; I10 Essential (primary) hypertension; I48.91 Unspecified atrial fibrillation; E11.9 Type 2 diabetes mellitus without complications; Z79.84 Long term (current) use of oral hypoglycemic drugs; Z79.4 Long term (current) use of insulin; Z98.890 Other specified postprocedural states; Z79.899 Other long term (current) drug therapy
CPT/HCPCS: 99285; 74176; 96374; 96375; 85025; 80048; 87086; 83690; 80076; 81001; 36415; J2405; J3490 ×2; J2270

== ENCOUNTER 2024-05-11 14:03 | Emergency (ER) | payer MEDICARE, OTHER ==
[~2024-05-11] VITALS: Ht 154.9 cm; Wt 92.5 kg
[~2024-05-11 14:03] MED LIST changes: +AMOX-430 PO
[2024-05-11 14:10] VITALS: TEMP 98.1
[2024-05-11 14:59] LABS: BASOPHILS # (AUTO) 0.1 K/uL (0.0-0.2); BASOPHILS % (AUTO) 0.7 % (0.0-2.0); EOSINOPHILS # (AUTO) 0.1 K/uL (0.0-0.7); EOSINOPHILS % (AUTO) 1.2 % (0.0-6.0); HEMATOCRIT 32 % (33-45); HEMOGLOBIN 10.4 g/dL (11.5-14.8); LYMPHOCYTES # (AUTO) 1.9 K/uL (0.8-4.8); LYMPHOCYTES % (AUTO) 16.7 % (20.0-44.0); MEAN CORPUSCULAR HEMOGLOBIN 27 PG (26.0-33.0); MEAN CORPUSCULAR HGB CONC 33 g/dl (31.0-36.0); MEAN CORPUSCULAR VOLUME 84 fL (82-100); MONOCYTES # (AUTO) 0.7 K/uL (0.1-1.30); NEUTROPHILS # (AUTO) 8.8 K/uL (1.8-8.9); NEUTROPHILS % (AUTO) 75.4 % (43.0-81.0); PLATELET COUNT (AUTO) 183 K/uL (150-450); RED BLOOD CELL COUNT(AUTO) 3.82 MIL/uL (4.0-5.2); RED CELL DISTRIBUTION WIDTH 14.7 % (11.5-15.0); WHITE BLOOD COUNT (AUTO) 11.6 K/uL (4.3-11.0)
[2024-05-11 15:12] LABS: INR 1.06 (0.91-1.10); PARTIAL THROMBOPLASTIN TIME 25.1 SEC (24.3-34.3); PROTHROMBIN TIME 11.2 SECS (9.2-11.1)
[2024-05-11 15:38] LABS: CALCIUM, SERUM 8.6 mg/dL (8.5-10.1); CREATININE 1.4 mg/dL (0.6-1.3); POTASSIUM 4.4 mmol/L (3.5-5.1)
[2024-05-11 15:44] LABS: ALBUMIN 2.9 g/dL (3.4-5.0); BILIRUBIN,TOTAL 0.2 mg/dL (0.2-1.0); TOTAL PROTEIN, SERUM 6.8 g/dL (6.4-8.2)
[2024-05-11] MEDS ORDERED: IOHEXOL-300 100 ML VIAL IV ONE (16:06)
[2024-05-11] MEDS ORDERED: IV NS 0.9% 250 ML IV ONE (16:06)
[2024-05-11] MEDS ORDERED: CT SWABBABLE VALVE TRANS SET 1 EA INFUS.SET MC ONE (16:06)
[2024-05-11] MEDS ORDERED: TRAM50TA2 PO (17:43)
[2024-05-11] MEDS ORDERED: MORPHINE SULFATE INJ 2 MG/ML DISP.SYRIN ONE (17:48)
[2024-05-11] MEDS: MORPHINE SULFATE INJ 2 MG/ML DISP.SYRIN IV ONE (17:57)
[2024-05-11 18:09] VITALS: BP 145/85; O2SAT 99
== END 2024-05-11 18:10 | disposition home or self-care (01) ==
LOC: ER 14:06
DX: R10.2 Pelvic and perineal pain (principal); M25.551 Pain in right hip; E11.9 Type 2 diabetes mellitus without complications; I10 Essential (primary) hypertension; I48.91 Unspecified atrial fibrillation; Z79.01 Long term (current) use of anticoagulants; Z79.02 Long term (current) use of antithrombotics/antiplatelets; Z79.84 Long term (current) use of oral hypoglycemic drugs; Z79.899 Other long term (current) drug therapy; Z86.59 Personal history of other mental and behavioral disorders; Z60.2 Problems related to living alone
CPT/HCPCS: 99285; 74177; 96374; 73502; 85025; 83690; 36415; 80053; 85730; J7050; J2270; Q9967